=== PATIENT | male | born 1965 | race Caucasian/White ===

== ENCOUNTER 2020-12-04 11:38 | Emergency (ER) | payer OTHER ==
--- NOTE | 2020-12-04 12:37 | EDM.PDOC ---
ED HPI GENERAL MEDICAL PROBLEM - General Chief Complaint: Respiratory Problem Stated Complaint: NO ENERGY/SOB/COUGH Time Seen by Provider: 12/04/20 12:05 Source of Information: Reports: Patient History Limitations: Reports: No Limitations, Other (ED vital signs reveal a temp of 97.4, pulse of 117, respiratory rate of 20, blood pressure 123/92, pulse ox 97% on room air) - History of Present Illness INITIAL COMMENTS - FREE TEXT/NARRATIVE: 55-year-old male presents the emergency department with complaints of shortness of breath, cough, and fatigue for the past 5 days. Patient denies any significant medical history. He does not have a primary care provider and he does not take any prescription medications. He does admit to smoking a pack and half a day for the past 30 years. He does admit to drinking 3-4 times a drink 3-4 drinks per night. He also admits to occasional marijuana use and states last time he used was couple weeks ago. States he developed shortness of breath and cough about 5 days ago and then states he has had no energy when he is at work. States his cough is productive of sputum however he generally swallows it and has not looked at it. He also states he has had decreased appetite. He denies any nausea, vomiting, diarrhea or abdominal pain. He states he still has his sense of taste and smell. He denies headache or fever. He denies any other upper respiratory symptoms. He denies any chest pain. - Related Data Allergies Allergy/AdvReac Type Severity Reaction Status Date / Time No Known Allergies Allergy Verified 12/04/20 12:05 Home Meds: Home Meds Rivaroxaban [Xarelto] 20 mg PO DAILY #30 tablet 12/04/20 [Rx] dexAMETHasone [Dexamethasone] 6 mg PO DAILY #14 tablet 12/04/20 [Rx] Past Medical History Psychiatric History: Reports: Anxiety - Past Surgical History HEENT Surgical History: Reports: Tonsillectomy Social & Family History - Tobacco Use Tobacco Use Status *Q: Current Every Day Tobacco User Years of Tobacco use: 30 Packs/Tins Daily: 1.2 - Caffeine Use Caffeine Use: Reports: Coffee ED ROS GENERAL - Review of Systems Review Of Systems: Comprehensive ROS is negative, except as noted in HPI. ED EXAM, GENERAL - Physical Exam Exam: See Below Exam Limited By: No Limitations General Appearance: Alert, WD/WN, No Apparent Distress Ears: Normal External Exam, Hearing Grossly Normal Nose: Normal Inspection Throat/Mouth: Normal Inspection, Normal Lips, Normal Voice, No Airway Compromise Head: Atraumatic Neck: Normal Inspection, Supple Respiratory/Chest: No Respiratory Distress, Lungs Clear, Normal Breath Sounds, No Accessory Muscle Use, Chest Non-Tender Cardiovascular: Normal Peripheral Pulses, Regular Rate, Rhythm, No Edema, No Murmur Peripheral Pulses: 2+: Radial (L), Radial (R) GI/Abdominal: Normal Bowel Sounds, Soft, Non-Tender, No Distention (Male) Exam: Deferred Rectal (Males) Exam: Deferred Back Exam: Normal Inspection Extremities: Normal Inspection, Normal Range of Motion, Non-Tender, No Pedal Edema, Normal Capillary Refill Neurological: Alert, Oriented, Normal Cognition Psychiatric: Normal Affect, Normal Mood Skin Exam: Warm, Dry, Intact, Normal Color, No Rash Lymphatic: No Adenopathy #1 Interpretation EKG Date: 12/04/20 Time: 12:42 Rhythm: NSR Rate (Beats/Min): 116 [place]: Normal P-Wave: Present QRS: Normal ST-T: Normal QT: Normal EKG Interpretation Comments: Per Dr. Duron interpretation: Sinus tachycardia at 116 bpm; old inferior infarct; baseline wander in leads V4; inferior Q waves; lateral subtle ST depression Course - Vital Signs Text/Narrative:: As stated above patient with 5-day history of fatigue, shortness of breath and cough. Assessment is essentially unremarkable. I have ordered labs to include a CBC, BMP, LFTs, troponin, proBNP, C-reactive protein, Covid swab, with influenza a and B, EKG, PT, PTT, LDH and ferritin levels as well as a D-dimer. Last Recorded V/S: Last Vital Signs Temp 97.4 F 12/04/20 12:01 Pulse 117 H 12/04/20 12:01 Resp 20 12/04/20 12:01 BP 123/92 H 12/04/20 12:01 Pulse Ox 97 12/04/20 12:01 - Orders/Labs/Meds Orders: Active Orders 24 hr Category Date Time Status EKG Documentation Completion [RC] STAT Care 12/04/20 12:25 Active Nurse Communication: Isolation [RC] ASDIRECTED Care 12/04/20 12:25 Active Chest 1V Frontal [CR] Stat Exams 12/04/20 12:25 Taken Sodium Chloride 0.9% [Normal Saline] 100 ml Med 12/04/20 16:15 Active IV ASDIRECTED Sodium Chloride 0.9% [Saline Flush] Med 12/04/20 12:26 Active 10 ml FLUSH ASDIRECTED PRN Isolation [COMM] Stat Oth 12/04/20 12:24 Ordered Saline Lock Insert [OM.PC] Stat Oth 12/04/20 12:26 Ordered Medication Orders Sodium Chloride (Normal Saline) 100 mls @ 60 mls/hr IV ASDIRECTED LEONARD Last Admin: 12/04/20 16:21 Dose: 60 mls/hr Documented by: RODY Sodium Chloride (Sodium Chloride 0.9% 10 Ml Syringe) 10 ml FLUSH ASDIRECTED PRN PRN Reason: Keep Vein Open Last Admin: 12/04/20 16:21 Dose: 10 ml Documented by: Admin: 12/04/20 12:46 Dose: 10 ml Documented by: LAURENCE Labs: Laboratory Tests 12/04/20 12/04/20 12/04/20 Range/Units 12:45 12:45 12:45 WBC 3.37 L (4.23-9.07) K/mm3 RBC 5.70 (4.63-6.08) M/mm3 Hgb 15.9 (13.7-17.5) gm/dl Hct 48.6 (40.1-51.0) % MCV 85.3 (79.0-92.2) fl MCH 27.9 (25.7-32.2) pg MCHC 32.7 (32.2-35.5) g/dl RDW Std Deviation 46.9 H (35.1-43.9) fL Plt Count 235 (163-337) K/mm3 MPV 10.2 (9.4-12.3) fl Neut % (Auto) 61.4 (34.0-67.9) % Lymph % (Auto) 21.4 L (21.8-53.1) % [place] % (Auto) 16.6 H (5.3-12.2) % Eos % (Auto) 0.3 L (0.8-7.0) Baso % (Auto) 0.3 (0.1-1.2) % Neut # (Auto) 2.07 (1.78-5.38) K/mm3 Lymph # (Auto) 0.72 L (1.32-3.57) K/mm3 [place] # (Auto) 0.56 (0.30-0.82) K/mm3 Eos # (Auto) 0.01 L (0.04-0.54) K/mm3 Baso # (Auto) 0.01 (0.01-0.08) K/mm3 Manual Slide Review Normal smear PT 11.5 (9.7-12.0) SECONDS INR 1.08 APTT 28.2 (21.7-31.4) SECONDS D-Dimer, Quantitative 0.66 H (0.19-0.50) mg/L Sodium (136-145) mEq/L Potassium (3.5-5.1) mEq/L Chloride (98-107) mEq/L Carbon Dioxide (21-32) mEq/L Anion Gap (5-15) BUN (7-18) mg/dL Creatinine (0.7-1.3) mg/dL Est Cr Clr Drug Dosing mL/min Estimated GFR (MDRD) (>60) mL/min BUN/Creatinine Ratio (14-18) Glucose (70-99) mg/dL Lactic Acid (0.4-2.0) mmol/L Calcium (8.5-10.1) mg/dL Ferritin 131 (26-388) ng/ml Total Bilirubin (0.2-1.0) mg/dL Direct Bilirubin (0.0-0.2) mg/dl Indirect Bilirubin AST (15-37) U/L ALT (16-63) U/L Alkaline Phosphatase (46-116) U/L Lactate Dehydrogenase (85-227) U/L Troponin I (0.00-0.056) ng/mL C-Reactive Protein (<1.0) mg/dL NT-Pro-B Natriuret Pep (0-125) pg/mL Total Protein (6.4-8.2) g/dl Albumin (3.4-5.0) g/dl Globulin gm/dL Albumin/Globulin Ratio (1-2) Influenza Type A RNA (NEGATIVE) Influenza Type B RNA (NEGATIVE) SARS-CoV-2 RNA (MATTIE) (NEGATIVE) 12/04/20 12/04/20 12/04/20 Range/Units 12:45 12:45 12:45 WBC (4.23-9.07) K/mm3 RBC (4.63-6.08) M/mm3 Hgb (13.7-17.5) gm/dl Hct (40.1-51.0) % MCV (79.0-92.2) fl MCH (25.7-32.2) pg MCHC (32.2-35.5) g/dl RDW Std Deviation (35.1-43.9) fL Plt Count (163-337) K/mm3 MPV (9.4-12.3) fl Neut % (Auto) (34.0-67.9) % Lymph % (Auto) (21.8-53.1) % [place] % (Auto) (5.3-12.2) % Eos % (Auto) (0.8-7.0) Baso % (Auto) (0.1-1.2) % Neut # (Auto) (1.78-5.38) K/mm3 Lymph # (Auto) (1.32-3.57) K/mm3 [place] # (Auto) (0.30-0.82) K/mm3 Eos # (Auto) (0.04-0.54) K/mm3 Baso # (Auto) (0.01-0.08) K/mm3 Manual Slide Review PT (9.7-12.0) SECONDS INR APTT (21.7-31.4) SECONDS D-Dimer, Quantitative (0.19-0.50) mg/L Sodium 133 L (136-145) mEq/L Potassium 4.7 (3.5-5.1) mEq/L Chloride 99 (98-107) mEq/L Carbon Dioxide 23 (21-32) mEq/L Anion Gap 15.7 H (5-15) BUN 22 H (7-18) mg/dL Creatinine 1.0 (0.7-1.3) mg/dL Est Cr Clr Drug Dosing 92.11 mL/min Estimated GFR (MDRD) > 60 (>60) mL/min BUN/Creatinine Ratio 22.0 H (14-18) Glucose 100 H (70-99) mg/dL Lactic Acid 0.8 (0.4-2.0) mmol/L Calcium 8.4 L (8.5-10.1) mg/dL Ferritin (26-388) ng/ml Total Bilirubin 1.0 (0.2-1.0) mg/dL Direct Bilirubin 0.40 H (0.0-0.2) mg/dl Indirect Bilirubin 0.60 AST 49 H (15-37) U/L ALT 63 (16-63) U/L Alkaline Phosphatase 86 (46-116) U/L Lactate Dehydrogenase 254 H (85-227) U/L Troponin I 0.048 (0.00-0.056) ng/mL C-Reactive Protein 4.5 H* (<1.0) mg/dL NT-Pro-B Natriuret Pep 2401 H (0-125) pg/mL Total Protein 8.4 H (6.4-8.2) g/dl Albumin 3.5 (3.4-5.0) g/dl Globulin 4.9 gm/dL Albumin/Globulin Ratio 0.7 L (1-2) Influenza Type A RNA (NEGATIVE) Influenza Type B RNA (NEGATIVE) SARS-CoV-2 RNA (MATTIE) (NEGATIVE) 12/04/20 Range/Units 12:45 WBC (4.23-9.07) K/mm3 RBC (4.63-6.08) M/mm3 Hgb (13.7-17.5) gm/dl Hct (40.1-51.0) % MCV (79.0-92.2) fl MCH (25.7-32.2) pg MCHC (32.2-35.5) g/dl RDW Std Deviation (35.1-43.9) fL Plt Count (163-337) K/mm3 MPV (9.4-12.3) fl Neut % (Auto) (34.0-67.9) % Lymph % (Auto) (21.8-53.1) % [place] % (Auto) (5.3-12.2) % Eos % (Auto) (0.8-7.0) Baso % (Auto) (0.1-1.2) % Neut # (Auto) (1.78-5.38) K/mm3 Lymph # (Auto) (1.32-3.57) K/mm3 [place] # (Auto) (0.30-0.82) K/mm3 Eos # (Auto) (0.04-0.54) K/mm3 Baso # (Auto) (0.01-0.08) K/mm3 Manual Slide Review PT (9.7-12.0) SECONDS INR APTT (21.7-31.4) SECONDS D-Dimer, Quantitative (0.19-0.50) mg/L Sodium (136-145) mEq/L Potassium (3.5-5.1) mEq/L Chloride (98-107) mEq/L Carbon Dioxide (21-32) mEq/L Anion Gap (5-15) BUN (7-18) mg/dL Creatinine (0.7-1.3) mg/dL Est Cr Clr Drug Dosing mL/min Estimated GFR (MDRD) (>60) mL/min BUN/Creatinine Ratio (14-18) Glucose (70-99) mg/dL Lactic Acid (0.4-2.0) mmol/L Calcium (8.5-10.1) mg/dL Ferritin (26-388) ng/ml Total Bilirubin (0.2-1.0) mg/dL Direct Bilirubin (0.0-0.2) mg/dl Indirect Bilirubin AST (15-37) U/L ALT (16-63) U/L Alkaline Phosphatase (46-116) U/L Lactate Dehydrogenase (85-227) U/L Troponin I (0.00-0.056) ng/mL C-Reactive Protein (<1.0) mg/dL NT-Pro-B Natriuret Pep (0-125) pg/mL Total Protein (6.4-8.2) g/dl Albumin (3.4-5.0) g/dl Globulin gm/dL Albumin/Globulin Ratio (1-2) Influenza Type A RNA Negative (NEGATIVE) Influenza Type B RNA Negative (NEGATIVE) SARS-CoV-2 RNA (MATTIE) Positive H (NEGATIVE) Meds: Medications Generic Name Dose Route Start Last Admin Trade Name Freq PRN Reason Stop Dose Admin Sodium Chloride 100 mls @ 60 mls/hr 12/04/20 16:15 12/04/20 16:21 Normal Saline IV 60 mls/hr ASDIRECTED LEONARD Administration Sodium Chloride 10 ml 12/04/20 12:26 12/04/20 16:21 Sodium Chloride 0.9% 10 Ml Syringe FLUSH 10 ml ASDIRECTED PRN Administration Keep Vein Open Discontinued Medications Generic Name Dose Route Start Last Admin Trade Name Sohail PRN Reason Stop Dose Admin Dexamethasone 6 mg 12/04/20 15:14 12/04/20 15:29 Dexamethasone 4 Mg Tab PO 12/04/20 15:15 6 mg ONETIME ONE Administration Furosemide 20 mg 12/04/20 15:14 12/04/20 15:29 Furosemide 20 Mg/2 Ml Vial IVPUSH 12/04/20 15:15 20 mg ONETIME ONE Administration Iopamidol 100 ml 12/04/20 16:09 12/04/20 16:21 Iopamidol 755 Mg/Ml 100 Ml Bottle IVPUSH 12/04/20 16:10 100 ml ONETIME ONE Administration Sodium Chloride 10 ml 12/04/20 16:09 Sodium Chloride 0.9% 10 Ml Sdv FLUSH 12/04/20 16:10 ONETIME ONE - Re-Assessments/Exams Free Text/Narrative Re-Assessment/Exam: 12/04/20 13:47 Hematology reveals a WBC of 3.37, hemoglobin 15.9, hematocrit 48.6, platelet count 235 Coagulation reveals a pro time 11.5, INR 1.08, PTT 28.2, D-dimer 0.66 Chemistry reveals a sodium of 133, potassium 4.7, chloride 99, carbon dioxide 23, anion gap 15.7, BUN 22, creatinine 1.0, GFR greater than 60, glucose 100, lactic acid 0.8, calcium 8.4, ferritin 131, total bilirubin 1.0, direct bilirubin 0.40, indirect bilirubin 0.60, AST 49, ALT 63, alk phos 86, LDH 254, troponin 0 0.048, C-reactive protein 4.5, proBNP 2401, total protein 8.4 Serology reveals influenza a and B are negative the patient is Covid positive. D-dimer is slightly elevated above normal limits however I think this is likely due to the Covid diagnosis. I do not feel that we need to do a CT angiogram of the patient at this time. 12/04/20 13:50 BNP is slightly elevated. Chest xray was reviewed by myself and Dr. Duron and it shows increased vascular congestion. 12/04/20 15:45 Was going to discharge the patient to home however he has been tachycardic in the 120s. O2 saturations are at 98% however I feel it would be best to rule out PE. I have ordered a CTA on the patient. I have also ordered for the patient to receive 20 of Lasix IV now and dexamethasone 6 mg p.o. now. 12/04/20 17:[address] of the chest: Pulmonary arteries are fairly well opacified. There is a minimal filling defect seen within the segmental branch of the left upper lung which may represent a minimal pulmonary embolism. Other portions of the pulmonary emboli show no additional filling defects to indicate additional pulmonary emboli. Small cyst is noted within the left lobe of the liver measuring 1.1 cm. Small cyst is also noted within the upper Right kidney measuring approximately 1.1 cm. No pericardial thickening seen. Thoracic aorta shows mild atherosclerotic calcification with no aneurysm. No mediastinal adenopathy is seen. No axillary adenopathy is noted. 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 Visualized lungs show slight density medially within the right middle lobe. Patchy areas of increased density are noted within the right lung base. No additional parenchymal findings are seen. Bone window settings were reviewed which show several old healed left-sided rib fractures. Diffuse scattered degenerative change within the spine is seen. No acute osseous abnormality is appreciated. Impression: 1. Possible small pulmonary embolism within a segmental branch within the left upper lung. No other pulmonary embolism are seen. 2. Patchy areas of increased density within the right chest most likely due to either scarring or mild viral infection. 3. Other findings as noted above which are chronic. Patient will need to be started on treatment for PE. We will give him Xarelto 20 mg here while in the emergency department he will then need to take that daily thereafter and follow-up with your primary care provider to manage his anticoagulant treatment. Departure - Departure Time of Disposition: 17:16 Disposition: Home, Self-Care 01 Condition: Good Clinical Impression: COVID-19, Pulmonary embolism on left - Discharge Information Prescriptions: dexAMETHasone [Dexamethasone] 6 mg PO DAILY #14 tablet Rivaroxaban [Xarelto] 20 mg PO DAILY #30 tablet Instructions: COVID-19: How to Protect Yourself and Others - CDC, COVID-19: Quarantine vs. Isolation - CDC, Pulmonary Embolism Referrals: PCP,None [Primary Care Provider] - Forms: ED Department Discharge Additional Instructions: You were seen in the emergency department with increasing fatigue, cough and shortness of breath. Labs were completed as well as a chest x-ray and it was discovered that you have COVID-19. Your D-dimer, which is a lab used to evaluate for suspicion of blood clots was elevated. CT scan of the chest was completed which did show you to have a small blood clot noted in your left lung. Treatment for this is a blood thinner called Xarelto. You will need to take 1 tab, 20 mg, daily. I have sent a prescription to [facility] for this medication. This generally needs to be taken for approximately 6 months. You will need to follow-up with a primary care provider to manage while on this medication. You have stated that you would like to follow-up with Dr. Becerra. You can get a hold of him at [facility]. I want you to follow-up with him as soon as your 10 days of quarantine are completed. The number for the clinic to make an appointment is [phone]. I suggest you call first thing tomorrow to schedule this appointment. I have also given you a prescription for a medication called dexamethasone. This is a steroid. It is commonly used to treat the symptoms of Covid as it decreases the inflammatory response. I want you to take 6 mg daily until the prescription is gone. Recommend that you stop smoking and stop drinking alcohol. Should your condition worsen or change, do not hesitate returning to the emergency department. Sepsis Event Note (ED) - Evaluation Sepsis Screening Result: No Definite Risk - Focused Exam Vital Signs: Vital Signs Temp Pulse Resp BP Pulse Ox 12/04/20 12:01 97.4 F 117 H 20 123/92 H 97 - My Orders Last 24 Hours: My Active Orders 12/04/20 12:24 Isolation [COMM] Stat 12/04/20 12:25 EKG Documentation Completion [RC] STAT Nurse Communication: Isolation [RC] ASDIRECTED Chest 1V Frontal [CR] Stat 12/04/20 12:26 Sodium Chloride 0.9% [Saline Flush] 10 ml FLUSH ASDIRECTED PRN Saline Lock Insert [OM.PC] Stat 12/04/20 16:15 Sodium Chloride 0.9% [Normal Saline] 100 ml IV ASDIRECTED - Assessment/Plan Last 24 Hours: My Active Orders 12/04/20 12:24 Isolation [COMM] Stat 12/04/20 12:25 EKG Documentation Completion [RC] STAT Nurse Communication: Isolation [RC] ASDIRECTED Chest 1V Frontal [CR] Stat 12/04/20 12:26 Sodium Chloride 0.9% [Saline Flush] 10 ml FLUSH ASDIRECTED PRN Saline Lock Insert [OM.PC] Stat 12/04/20 16:15 Sodium Chloride 0.9% [Normal Saline] 100 ml IV ASDIRECTED
[2020-12-04] MEDS: Sodium Chloride 0.9% 10 ML Syringe FLUSH PRN ×2 (12:46→16:21)
[2020-12-04 13:36] LABS: CORONAVIRUS COVID-19 NAA POSITIVE (NEGATIVE)
[2020-12-04] MEDS ORDERED: Furosemide 20 MG/2 ML VIAL IVPUSH ONE (15:14)
[2020-12-04] MEDS ORDERED: Dexamethasone 4 MG Tab PO ONE (15:14)
[2020-12-04] MEDS ORDERED: Iopamidol 755 Mg/ML 100 ML Bottle IVPUSH ONE (16:09)
[2020-12-04] MEDS ORDERED: Sodium Chloride 0.9% 10 ML SDV FLUSH ONE (16:09)
[2020-12-04] MEDS ORDERED: Sodium Chloride 0.9% 100 ML IV SCH (16:15)
--- NOTE | 2020-12-04 16:48 | CT ---
CT chest Technique: Multiple axial sections through the chest were obtained. Intravenous contrast was utilized. Study has been performed as a pulmonary angiogram protocol. Comparison: No prior chest imaging is available. Findings: Pulmonary arteries are fairly well opacified. There is a minimal filling defect seen within the segmental branch of the left upper lung which may represent a minimal pulmonary embolism. Other portions of the pulmonary emboli show no additional filling defects to indicate additional pulmonary emboli. Small cyst is noted within the left lobe of the liver measuring 1.1 cm. Small cyst is also noted within the upper right kidney measuring approximately 1.1 cm. No pericardial thickening is seen. Thoracic aorta shows mild atherosclerotic calcification with no aneurysm. No mediastinal adenopathy is seen. No axillary adenopathy is noted. There is a large lipoma being seen which infiltrates itself between pectoral muscles on the right side of the chest. Visualized lungs show slight density medially within the right middle lobe. Patchy areas of increased density are noted within the right lung base. No additional parenchymal findings are seen. Bone window settings were reviewed which show several old healed left-sided rib fractures. Diffuse scattered degenerative change within the spine is seen. No acute osseous abnormality is appreciated. Impression: 1. Possible small pulmonary embolism within a segmental branch within the left upper lung. No other pulmonary emboli are seen. 2. Patchy areas of increased density within the right chest most likely due to either scarring or mild viral infection. 3. Other findings as noted above which are chronic. Diagnostic code #3
[2020-12-04] MEDS ORDERED: Rivaroxaban 10 MG Tab PO ONE (17:12)
--- NOTE | 2020-12-05 07:51 | CR ---
Chest: Portable view of the chest was obtained. Comparison: Subsequent chest CT study is available, no prior chest imaging is otherwise seen. Old rib fracture is noted within the right posterior sixth rib. Old rib fracture is also noted within the posterolateral left eighth rib. Density is noted within the left upper chest most likely representing costochondral calcification within the first rib articulation. Lungs otherwise show no definite acute parenchymal change. Small findings that were noted on subsequent chest CT are not well seen on current chest x-ray. Heart size and mediastinum are within normal limits. Impression: 1. Findings as noted above. Nothing acute is appreciated on portable chest x-ray. Diagnostic code #2
== END 2020-12-04 17:45 | disposition home or self-care (01) ==
LOC: JD.ED 11:38
DX: U07.1 COVID-19 (principal); I26.99 Other pulmonary embolism without acute cor pulmonale; Z79.01 Long term (current) use of anticoagulants; Z72.0 Tobacco use
CPT/HCPCS: 0240U; 36415; 71045; 71275; 80048; 80076; 82728; 83605; 83615; 83880; 84484; 85025; 85379; 85610; 85730; 86140; 93005; 96374; 99285; A9270; J1940; J8540; Q9967; 93010; 99284

== ENCOUNTER 2021-01-10 16:56 | Inpatient (IN) | payer OTHER ==
[~2021-01-10 16:56] MED LIST: Furosemide 40 MG/4 ML VIAL IVPUSH ONE
[2021-01-10] MEDS ORDERED: Sodium Chloride 0.9% 10 ML Syringe FLUSH PRN (17:26)
[2021-01-10] MEDS ORDERED: Furosemide 40 MG/4 ML VIAL IVPUSH ONE (18:43)
[2021-01-10] MEDS ORDERED: Nicotine 14 MG/24 Hr Patch TRDERM ONE (19:39)
--- NOTE | 2021-01-10 20:14 | EDM.PDOC ---
ED HPI GENERAL MEDICAL PROBLEM - General Chief Complaint: Respiratory Problem Stated Complaint: SOB ANKLE SWELLING Time Seen by Provider: 01/10/21 17:04 Source of Information: Reports: Patient, Family History Limitations: Reports: No Limitations - History of Present Illness INITIAL COMMENTS - FREE TEXT/NARRATIVE: The patient presents with shortness of breath, leg edema and weight gain. The patient was diagnosed with COVID in early November on the . His D-dimer was elevated so a CT angio of his chest was done and it showed bilateral COVID 19 pneumonia and a possible clot in the peripheral artery. He was started on xarelto. He says for a few days he felt good but then has been getting short of breath with exertion. That has gotten worse and over the past few weeks he had a 26 pound weight gain. Last night he had to sleep sitting up. He has no chest pain. He has no fever but he has some chills. He has no abdominal pain, nausea or vomiting. Onset: Gradual Duration: Week(s): Severity: Moderate Improves with: Reports: None Worsens with: Reports: None Associated Symptoms: Reports: Cough, Shortness of Breath. Denies: Chest Pain, Fever/Chills, Headaches, Nausea/Vomiting - Related Data Allergies Allergy/AdvReac Type Severity Reaction Status Date / Time No Known Allergies Allergy Verified 01/10/21 17:12 Home Meds: Home Meds Rivaroxaban [Xarelto] 20 mg PO DAILY #30 tablet 12/04/20 [Rx] dexAMETHasone [Dexamethasone] 6 mg PO DAILY #14 tablet 12/04/20 [Rx] Past Medical History Psychiatric History: Reports: Anxiety - Infectious Disease History Infectious Disease History: Reports: Novel Coronavirus - Past Surgical History HEENT Surgical History: Reports: Tonsillectomy Social & Family History - Tobacco Use Tobacco Use Status *Q: Current Every Day Tobacco User Years of Tobacco use: 45 Packs/Tins Daily: 1.5 - Caffeine Use Caffeine Use: Reports: Coffee - Recreational Drug Use Recreational Drug Use: No ED ROS GENERAL - Review of Systems Review Of Systems: See Below Constitutional: Reports: Malaise, Weakness, Fatigue. Denies: Fever, Chills HEENT: Reports: No Symptoms Respiratory: Reports: Shortness of Breath. Denies: Cough Cardiovascular: Reports: Edema. Denies: Chest Pain Endocrine: Reports: No Symptoms GI/Abdominal: Reports: No Symptoms : Reports: No Symptoms Musculoskeletal: Reports: No Symptoms ED EXAM, GENERAL - Physical Exam Exam: See Below Exam Limited By: No Limitations General Appearance: Alert, No Apparent Distress Ears: Normal External Exam Nose: Normal Inspection Head: Atraumatic, Normocephalic Neck: Normal Inspection, Supple, Non-Tender Respiratory/Chest: No Respiratory Distress, Rales Cardiovascular: Regular Rate, Rhythm, No Edema, Systolic Murmur GI/Abdominal: Soft, Non-Tender, No Organomegaly, No Mass Back Exam: Normal Inspection #1 Interpretation EKG Date: 01/10/21 Time: 17:41 Rhythm: Other (sinus tachycardia) Rate (Beats/Min): 116 [place]: Normal P-Wave: Present QRS: Normal ST-T: Normal QT: Normal EKG Interpretation Comments: Q waves in the inferior leads Course - Vital Signs Last Recorded V/S: Last Vital Signs Temp 97.1 F 01/10/21 17:05 Pulse 122 H 01/10/21 17:05 Resp 26 H 01/10/21 17:05 BP 161/96 H 01/10/21 17:05 Pulse Ox 97 01/10/21 17:05 - Orders/Labs/Meds Orders: Active Orders 24 hr Category Date Time Status Cardiac Monitoring [RC] . DIRECTED Care 01/10/21 17:26 Active Oxygen Therapy [RC] PRN Care 01/10/21 17:26 Active Peripheral IV Care [RC] . DIRECTED Care 01/10/21 17:26 Active Chest 1V Frontal [CR] Stat Exams 01/10/21 17:26 Taken Pantoprazole [ProTONIX IV] Med 01/10/21 20:43 Once 40 mg IVPUSH ONETIME ONE Sodium Chloride 0.9% [Saline Flush] Med 01/10/21 17:26 Active 10 ml FLUSH ASDIRECTED PRN Peripheral IV Insertion Adult [OM.PC] Stat Oth 01/10/21 17:26 Ordered Medication Orders Sodium Chloride (Sodium Chloride 0.9% 10 Ml Syringe) 10 ml FLUSH ASDIRECTED PRN PRN Reason: Keep Vein Open Last Admin: 01/10/21 17:32 Dose: 10 ml Documented by: HI Labs: Laboratory Tests 01/10/21 01/10/21 01/10/21 Range/Units 17:07 17:07 17:07 WBC 5.68 (4.23-9.07) K/mm3 RBC 3.16 L (4.63-6.08) M/mm3 Hgb 8.4 L D (13.7-17.5) gm/dl Hct 28.5 L (40.1-51.0) % MCV 90.2 D (79.0-92.2) fl MCH 26.6 (25.7-32.2) pg MCHC 29.5 L (32.2-35.5) g/dl RDW Std Deviation 54.0 H (35.1-43.9) fL Plt Count 310 D (163-337) K/mm3 MPV 10.4 (9.4-12.3) fl Neut % (Auto) 66.8 (34.0-67.9) % Lymph % (Auto) 17.3 L (21.8-53.1) % [place] % (Auto) 14.1 H (5.3-12.2) % Eos % (Auto) 1.4 (0.8-7.0) Baso % (Auto) 0.2 (0.1-1.2) % Neut # (Auto) 3.80 (1.78-5.38) K/mm3 Lymph # (Auto) 0.98 L (1.32-3.57) K/mm3 [place] # (Auto) 0.80 (0.30-0.82) K/mm3 Eos # (Auto) 0.08 (0.04-0.54) K/mm3 Baso # (Auto) 0.01 (0.01-0.08) K/mm3 Sodium 138 (136-145) mEq/L Potassium 4.5 (3.5-5.1) mEq/L Chloride 105 (98-107) mEq/L Carbon Dioxide 27 (21-32) mEq/L Anion Gap 10.5 (5-15) BUN 19 H (7-18) mg/dL Creatinine 0.9 (0.7-1.3) mg/dL Est Cr Clr Drug Dosing 102.34 mL/min Estimated GFR (MDRD) > 60 (>60) mL/min BUN/Creatinine Ratio 21.1 H (14-18) Glucose 103 H (70-99) mg/dL Calcium 8.0 L (8.5-10.1) mg/dL Total Bilirubin 0.6 (0.2-1.0) mg/dL AST 24 (15-37) U/L ALT 36 (16-63) U/L Alkaline Phosphatase 83 (46-116) U/L Troponin I < 0.017 (0.00-0.056) ng/mL NT-Pro-B Natriuret Pep 3799 H (0-125) pg/mL Total Protein 6.7 (6.4-8.2) g/dl Albumin 2.7 L (3.4-5.0) g/dl Globulin 4.0 gm/dL Albumin/Globulin Ratio 0.7 L (1-2) Meds: Medications Generic Name Dose Route Start Last Admin Trade Name Freq PRN Reason Stop Dose Admin Sodium Chloride 10 ml 01/10/21 17:26 01/10/21 17:32 Sodium Chloride 0.9% 10 Ml Syringe FLUSH 10 ml ASDIRECTED PRN Administration Keep Vein Open Discontinued Medications Generic Name Dose Route Start Last Admin Trade Name Freq PRN Reason Stop Dose Admin Furosemide 40 mg 01/10/21 18:43 01/10/21 18:57 Furosemide 40 Mg/4 Ml Vial IVPUSH 01/10/21 18:44 40 mg NOW ONE Administration Nicotine 14 mg 01/10/21 19:39 01/10/21 20:00 Nicotine 14 Mg/24 Hr Patch TRDERM 01/10/21 19:40 14 mg ONETIME ONE Administration - Re-Assessments/Exams Free Text/Narrative Re-Assessment/Exam: 01/10/21 20:48 I ordered oxygen PRN, EKG, CXR, and labs. His EKG shows a sinus tachycardia with no acute changes. His CXR shows cardiomegaly with congestive changes. 01/10/21 20:49 His Hgb was low at 8.4. His CMP looks good. His troponin is negative. His BNP was elevated at 3799. I gave him lasix 40mg IV. He had about 800mls of output already. He has no onset CHF with a murmur. I feel he needs to be admitted with lasix and an echo. I called Dr Brooks and he agreed to the admission. Departure - Departure Time of Disposition: 20:55 Disposition: Admitted As Inpatient 64 Condition: Poor Clinical Impression: New onset of congestive heart failure CHF exacerbation Qualifiers: Heart failure type: unspecified Qualified Code(s): I50.9 - Heart failure, unspecified Anemia Qualifiers: Anemia type: other cause Other causes of anemia: other cause, not classified Qualified Code(s): D64.89 - Other specified anemias - Discharge Information Referrals: Maikel Alexander MD [Primary Care Provider] - Forms: ED Department Discharge Sepsis Event Note (ED) - Focused Exam Vital Signs: Vital Signs Temp Pulse Resp BP Pulse Ox 01/10/21 17:05 97.1 F 122 H 26 H 161/96 H 97 - My Orders Last 24 Hours: My Active Orders 01/10/21 17:26 Cardiac Monitoring [RC] . DIRECTED Oxygen Therapy [RC] PRN Peripheral IV Care [RC] . DIRECTED Chest 1V Frontal [CR] Stat Sodium Chloride 0.9% [Saline Flush] 10 ml FLUSH ASDIRECTED PRN Peripheral IV Insertion Adult [OM.PC] Stat 01/10/21 20:43 Pantoprazole [ProTONIX IV] 40 mg IVPUSH ONETIME ONE - Assessment/Plan Last 24 Hours: My Active Orders 01/10/21 17:26 Cardiac Monitoring [RC] . DIRECTED Oxygen Therapy [RC] PRN Peripheral IV Care [RC] . DIRECTED Chest 1V Frontal [CR] Stat Sodium Chloride 0.9% [Saline Flush] 10 ml FLUSH ASDIRECTED PRN Peripheral IV Insertion Adult [OM.PC] Stat 01/10/21 20:43 Pantoprazole [ProTONIX IV] 40 mg IVPUSH ONETIME ONE
[2021-01-10] MEDS ORDERED: Pantoprazole 40 MG Vial IVPUSH ONE (20:43)
--- NOTE | 2021-01-11 07:20 | CR ---
Chest: Portable view of the chest was obtained. Comparison: Prior chest x-ray of 12/04/20. Heart size and mediastinum are within normal limits for portable technique. Old right-sided rib fracture is seen within the sixth right rib. Old left lower rib fracture is noted within the left eighth rib. Lung markings are mildly increased which appear stable from prior chest x-ray. No appreciable change is definitely seen from prior exam. Impression: 1. Findings as noted above. 2. No definite change is seen from previous chest x-ray. Diagnostic code #2
--- NOTE | 2021-01-11 07:42 | PCM.HP.2 ---
H&P History of Present Illness - General Date of Service: 01/11/21 Admit Problem/Dx: Admission Diagnosis/Problem Admission Diagnosis/Problem Congestive heart failure Source of Information: Patient, Old Records, Provider, RN, RN Notes Reviewed History Limitations: Reports: No Limitations - History of Present Illness Initial Comments - Free Text/Narative: This is a 55-year-old male who presents to our ED on the evening of 01/10/2021 with shortness of breath and ankle swelling. He also appreciates a 26 pound weight gain over the last few weeks. Per his history he was diagnosed with Covid in early November on the and a CT angiogram of his chest was done showing bilateral COVID-19 pneumonia and a possible clot in the peripheral artery. He was started on Xarelto. Shortly thereafter he noticed that he was getting more and more shortness of breath with exertion. He reports orthopnea but denies any chest pain. No fever but had some chills. Denies any abdominal pain, nausea, vomiting. In the ED twelve-lead EKG is obtained showing a sinus tachycardia 116 bpm. There are Q waves noted in the inferior leads. Temp is 97.1 Fahrenheit. Pulse 122. Respirations 26. Blood pressure 161/96. Pulse ox is 97% on room air. Labs are obtained showing a WBC of 5.68. Hemoglobin 8.4. He is normocytic. Platelet 310,000. Neutrophils are normal at 66.8%. Sodium 138. Potassium 4.5. Chloride 105. Carbon dioxide 27. Anion gap is 10.5. BUN is 19. Creatinine 0.9. GFR greater than 60. Glucose is 103. Total bilirubin 0.6. AST is 24, ALT 36, alkaline phosphatase 83. Troponin is less than 0.017. proBNP is 3799. Protein is 6.7. Albumin 2.7. Chest x-ray is obtained showing mildly increased lung markings which appear stable and old rib fractures but nothing acute. He is given 40 mg IV push Lasix and has 800 mL of output. Of note there is a new systolic murmur noted. He carries a history of anxiety. He is a daily 1.5 pack/day smoker. He is a full code. His PCP is Dr. Becerra. He subsequently admitted to the medical floor for management of his suspected new onset CHF. - Related Data Allergies/Adverse Reactions: Allergies Allergy/AdvReac Type Severity Reaction Status Date / Time No Known Allergies Allergy Verified 01/11/21 00:24 Home Medications: Home Meds Rivaroxaban [Xarelto] 20 mg PO DAILY #30 tablet 12/04/20 [Rx] Past Medical History Respiratory History: Reports: PE Psychiatric History: Reports: Anxiety - Infectious Disease History Infectious Disease History: Reports: Novel Coronavirus - Past Surgical History HEENT Surgical History: Reports: Tonsillectomy Other Respiratory Surgeries/Procedures: Covid (+) December 04, 2020 with PE Social & Family History - Family History Family Medical History: No Pertinent Family History - Tobacco Use Tobacco Use Status *Q: Current Every Day Tobacco User Years of Tobacco use: 35 Packs/Tins Daily: 1 Used Tobacco, but Quit: No - Caffeine Use Caffeine Use: Reports: Coffee - Recreational Drug Use Recreational Drug Use: No H&P Review of Systems - Review of Systems: Review Of Systems: See Below General: Reports: Chills, Weakness, Weight Gain (26 lbs). Denies: Fever, Malaise, Fatigue HEENT: Reports: No Symptoms. Denies: Headaches, Sore Throat Pulmonary: Reports: Shortness of Breath. Denies: Wheezing, Pleuritic Chest Pain, Cough, Sputum Cardiovascular: Reports: Dyspnea on Exertion, Orthopnea, Edema. Denies: Chest Pain, Palpitations Gastrointestinal: Reports: Hematochezia. Denies: Abdominal Pain, Constipation, Diarrhea, Hematemesis, Melena, Nausea, Vomiting Genitourinary: Reports: No Symptoms. Denies: Pain Musculoskeletal: Reports: No Symptoms Skin: Reports: No Symptoms. Denies: Cyanosis Psychiatric: Reports: No Symptoms. Denies: Confusion Neurological: Reports: No Symptoms. Denies: Confusion, Dizziness, Headache, Numbness, Tingling, Difficulty Walking, Gait Disturbance Hematologic/Lymphatic: Reports: No Symptoms Immunologic: Reports: No Symptoms Exam - Exam Exam: See Below - Vital Signs Vital Signs: Last Vital Signs Temp 98.2 F 01/11/21 05:49 Pulse 119 H 01/11/21 05:49 Resp 14 01/11/21 05:49 BP 133/93 H 01/11/21 05:49 Pulse Ox 97 01/11/21 05:49 Weight: 233 lb 4.8 oz - Exam Quality Assessment: DVT Prophylaxis. No: Supplemental Oxygen, Urinary Catheter General: Alert, Oriented, Cooperative. No: Mild Distress HEENT: Conjunctiva Clear, EACs Clear, Mucosa Moist & [place], Posterior Pharynx Clear Neck: Supple, Trachea Midline Lungs: Clear to Auscultation, Normal Respiratory Effort Cardiovascular: Regular Rate, Regular Rhythm GI/Abdominal Exam: Normal Bowel Sounds, Soft, Non-Tender, No Distention (Male) Exam: Deferred Rectal (Males) Exam: Deferred Back Exam: Normal Inspection, Full Range of Motion Extremities: Normal Inspection, Normal Range of Motion, Non-Tender, Normal Capillary Refill, Pedal Edema (1+) Peripheral Pulses: 2+: Radial (L), Radial (R), Dorsalis Pedis (L), Dorsalis Pedis (R) Skin: Warm, Dry, Intact Neurological: Cranial Nerves Intact (Grossly ) Neuro Extensive - Mental Status: Alert, Oriented x3, Normal Mood/Affect - Patient Data Lab Results Last 24 hrs: Laboratory Results - last 24 hr 01/10/21 01/10/21 01/10/21 Range/Units 17:07 17:07 17:07 WBC 5.68 (4.23-9.07) K/mm3 RBC 3.16 L (4.63-6.08) M/mm3 Hgb 8.4 L D (13.7-17.5) gm/dl Hct 28.5 L (40.1-51.0) % MCV 90.2 D (79.0-92.2) fl MCH 26.6 (25.7-32.2) pg MCHC 29.5 L (32.2-35.5) g/dl RDW Std Deviation 54.0 H (35.1-43.9) fL Plt Count 310 D (163-337) K/mm3 MPV 10.4 (9.4-12.3) fl Neut % (Auto) 66.8 (34.0-67.9) % Lymph % (Auto) 17.3 L (21.8-53.1) % [place] % (Auto) 14.1 H (5.3-12.2) % Eos % (Auto) 1.4 (0.8-7.0) Baso % (Auto) 0.2 (0.1-1.2) % Neut # (Auto) 3.80 (1.78-5.38) K/mm3 Lymph # (Auto) 0.98 L (1.32-3.57) K/mm3 [place] # (Auto) 0.80 (0.30-0.82) K/mm3 Eos # (Auto) 0.08 (0.04-0.54) K/mm3 Baso # (Auto) 0.01 (0.01-0.08) K/mm3 Sodium 138 (136-145) mEq/L Potassium 4.5 (3.5-5.1) mEq/L Chloride 105 (98-107) mEq/L Carbon Dioxide 27 (21-32) mEq/L Anion Gap 10.5 (5-15) BUN 19 H (7-18) mg/dL Creatinine 0.9 (0.7-1.3) mg/dL Est Cr Clr Drug Dosing 102.34 mL/min Estimated GFR (MDRD) > 60 (>60) mL/min BUN/Creatinine Ratio 21.1 H (14-18) Glucose 103 H (70-99) mg/dL Calcium 8.0 L (8.5-10.1) mg/dL Total Bilirubin 0.6 (0.2-1.0) mg/dL AST 24 (15-37) U/L ALT 36 (16-63) U/L Alkaline Phosphatase 83 (46-116) U/L Troponin I < 0.017 (0.00-0.056) ng/mL NT-Pro-B Natriuret Pep 3799 H (0-125) pg/mL Total Protein 6.7 (6.4-8.2) g/dl Albumin 2.7 L (3.4-5.0) g/dl Globulin 4.0 gm/dL Albumin/Globulin Ratio 0.7 L (1-2) Result Diagrams: 01/11/21 07:59 01/11/21 07:59 Sepsis Event Note - Evaluation Sepsis Screening Result: No Definite Risk - Focused Exam Vital Signs: Vital Signs Temp Pulse Resp BP Pulse Ox 01/11/21 05:49 98.2 F 119 H 14 133/93 H 97 01/10/21 22:21 126 H 14 158/88 H 100 - Problem List (1) Tachycardia SNOMED Code(s): 5514938 ICD Code: R00.0 - TACHYCARDIA, UNSPECIFIED Status: Acute Priority: Medium Current Visit: Yes (2) Lower GI bleed SNOMED Code(s): 06679652 ICD Code: K92.2 - GASTROINTESTINAL HEMORRHAGE, UNSPECIFIED Status: Acute Priority: Medium Current Visit: Yes (3) Murmur SNOMED Code(s): 03327659 ICD Code: R01.1 - CARDIAC MURMUR, UNSPECIFIED Status: Acute Priority: High Current Visit: Yes (4) Pedal edema SNOMED Code(s): 100209839 ICD Code: R60.0 - LOCALIZED EDEMA Status: Acute Priority: High Current Visit: Yes (5) Tobacco use disorder SNOMED Code(s): 493001096 ICD Code: F17.200 - NICOTINE DEPENDENCE, UNSPECIFIED, UNCOMPLICATED Status: Chronic Priority: Medium Current Visit: Yes (6) Alcohol use SNOMED Code(s): 223554 ICD Code: Z72.89 - OTHER PROBLEMS RELATED TO LIFESTYLE Status: Chronic Priority: Medium Current Visit: Yes (7) History of COVID-19 SNOMED Code(s): 415453557138685913, 224662518208157832 ICD Code: Z86.16 - PERSONAL HISTORY OF COVID-19 Status: Chronic Priority: Medium Current Visit: Yes (8) Anemia SNOMED Code(s): 106924365 ICD Code: D64.9 - ANEMIA, UNSPECIFIED Status: Acute Priority: High Current Visit: Yes Qualifiers: Anemia type: other cause Other causes of anemia: other cause, not classified Qualified Code(s): D64.89 - Other specified anemias (9) New onset of congestive heart failure SNOMED Code(s): 04356723 ICD Code: I50.9 - HEART FAILURE, UNSPECIFIED Status: Acute Priority: High Current Visit: Yes Problem List Initiated/Reviewed/Updated: Yes Orders Last 24hrs: Active Orders 24 hr Category Date Time Status Patient Status [ADT] Routine ADT 01/10/21 22:05 Active Antiembolic Devices [RC] PER UNIT ROUTINE Care 01/11/21 07:41 Active Bedrest Bathroom Privileges [RC] BID Care 01/10/21 22:43 Active Cardiac Monitoring [RC] . DIRECTED Care 01/10/21 17:26 Active Oxygen Therapy [RC] PRN Care 01/10/21 17:26 Active Peripheral IV Care [RC] Q4HR Care 01/10/21 17:26 Active Heart Healthy Diet [DIET] Diet 01/11/21 Breakfast Active Echo Comp wo Cont [US] Routine Exams 01/11/21 Ordered Furosemide [Lasix] Med 01/11/21 09:00 Once 40 mg IVPUSH ONETIME ONE Melatonin Med 01/10/21 22:46 Active 6 mg PO BEDTIME PRN Pantoprazole [ProTONIX IV] Med 01/11/21 09:00 Active 40 mg IVPUSH BID Sodium Chloride 0.9% [Saline Flush] Med 01/10/21 17:26 Active 10 ml FLUSH ASDIRECTED PRN Peripheral IV Insertion Adult [OM.PC] Stat Oth 01/10/21 17:26 Ordered SCD [Sequential Compression Device] [OM.PC] Routine Oth 01/11/21 07:41 Ordered Code Status [Resuscitation Status] Routine Resus Stat 01/10/21 23:38 Ordered Medication Orders Furosemide (Furosemide 40 Mg/4 Ml Vial) 40 mg IVPUSH ONETIME ONE Stop: 01/11/21 09:01 Melatonin (Melatonin 3 Mg Tab) 6 mg PO BEDTIME PRN PRN Reason: Insomnia Pantoprazole Sodium (Pantoprazole 40 Mg Vial) 40 mg IVPUSH BID LEONARD Sodium Chloride (Sodium Chloride 0.9% 10 Ml Syringe) 10 ml FLUSH ASDIRECTED PRN PRN Reason: Keep Vein Open Last Admin: 01/10/21 17:32 Dose: 10 ml Documented by: HI Assessment/Plan Comment:: Assessment - 01/11/2021 (admitted late 01/10/2021) * 55-year-old male who presents to our ED on the evening of 01/10/2021 with shortness of breath and ankle swelling * History of anxiety. He is a daily 1.5 pack/day smoker * Appreciates a 26 pound weight gain over the last few weeks * Diagnosed with Covid in early November on the and a CT angiogram of his chest was done showing bilateral COVID-19 pneumonia and a possible clot in the peripheral artery * Started on Xarelto * Has since noticed that he was getting more and more shortness of breath with exertion * Reports orthopnea but denies any chest pain. No fever but had some chills. D enies any abdominal pain, nausea, vomiting. * 12-lead EKG is obtained showing a sinus tachycardia 116 bpm. There are Q waves noted in the inferior leads. * Labs are obtained: * WBC of 5.68. * Hemoglobin 8.4. He is normocytic. * Platelet 310,000. * Neutrophils are normal at 66.8%. * Sodium 138. * Potassium 4.5. * Chloride 105. * Carbon dioxide 27. * Anion gap is 10.5. * BUN is 19. Creatinine 0.9. GFR greater than 60. * Glucose is 103. * Total bilirubin 0.6. * AST is 24, ALT 36, alkaline phosphatase 83. * Troponin is less than 0.017. * proBNP is 3799. * Protein is 6.7. * Albumin 2.7. * Chest x-ray is obtained showing mildly increased lung markings which appear stable and old rib fractures but nothing acute. * He is given 40 mg IV push Lasix and has 800 mL of output. * Of note there is a new systolic murmur noted. * Subsequently admitted to the medical floor for management of his suspected new onset CHF. PLAN: New onset of congestive heart failure Tachycardia Murmur Pedal edema * 40mg BID Diuretic IVP lasix * Telemetry * Strict I&O * Daily weights * 1.5L fluid restriction * Heart healthy diet (low sodium) * Event Staff Member consultation * Echocardiogram obtained and pending * Cardiology follow-up * Consider Entresto * No need for PT/OT currently * Monitor vital signs * Monitor electrolytes * Daily labs Anemia Lower GI bleed * Daily labs * Re-check H/H at 1300 * BID 40mg PO protonix * Hold home Xarelto * SCDs * Consider surgical consult although poor candidate due to new onset CHF Tobacco use disorder * Daily nicotine patch * Cessation counseling * Offer patches on discharge Alcohol use * Reports social ETOH use * Known history of rather significant ETOH use * Q4HR CIWAA protocol * Start thiamine supplementation daily * Start folic acid supplementation * Monitor History of COVID-19 * No acute concerns * ? Cardiomyopathy 2/2 Covid Code status: Full Code PCP: Dr. Becerra DVT prophylaxis: SCDs (pharmacological contraindicated due to GI bleed) Disposition: Patient admitted to OB as MedSurg overflow for new onset CHF work- up on telemetry. Length of stay likely 3 to 4 days. - Mortality Measure Prognosis:: Good
[2021-01-11] MEDS ORDERED: Docusate Sodium 100 MG Cap PO PRN (07:44)
[2021-01-11] MEDS ORDERED: Acetaminophen 325 MG Tab PO PRN (07:44)
[2021-01-11] MEDS ORDERED: Ondansetron 4 MG/2 ML SDV IV PRN (07:44)
[2021-01-11] MEDS ORDERED: Pantoprazole 40 MG Vial IVPUSH SCH (09:00)
[2021-01-11] MEDS ORDERED: Furosemide 40 MG/4 ML VIAL IVPUSH ONE (09:00)
[2021-01-11] MEDS: Nicotine 14 MG/24 Hr Patch TRDERM SCH (09:25)
[2021-01-11] MEDS: Thiamine 100 MG Tab PO SCH (11:08)
[2021-01-11] MEDS: Folic Acid 1 MG Tab PO SCH (11:08)
[2021-01-11] MEDS: Furosemide 40 MG/4 ML VIAL IVPUSH SCH (14:31)
[2021-01-11] MEDS: Pantoprazole 40 MG Tab.CR PO SCH (20:37)
[2021-01-11] MEDS: Melatonin 3 MG Tab PO PRN (20:38)
[2021-01-12] MEDS: Furosemide 40 MG/4 ML VIAL IVPUSH SCH ×2 (06:27→14:58)
--- NOTE | 2021-01-12 07:08 | PCM.PN ---
- General Info Date of Service: 01/12/21 Admission Dx/Problem (Free Text): Admission Diagnosis/Problem Admission Diagnosis/Problem Congestive heart failure Functional Status: Reports: Pain Controlled, Tolerating Diet, Ambulating, Urinating. Denies: New Symptoms - Review of Systems General: Reports: No Symptoms. Denies: Fever, Weakness, Fatigue, Malaise, Chills HEENT: Reports: No Symptoms. Denies: Headaches, Sore Throat Pulmonary: Reports: No Symptoms. Denies: Shortness of Breath, Cough, Sputum, Wheezing Cardiovascular: Reports: Edema. Denies: Chest Pain, Palpitations, Dyspnea on Exertion Gastrointestinal: Reports: No Symptoms. Denies: Abdominal Pain, Constipation, Diarrhea, Nausea, Vomiting Genitourinary: Reports: No Symptoms. Denies: Pain Musculoskeletal: Reports: No Symptoms Skin: Reports: No Symptoms. Denies: Cyanosis Neurological: Reports: No Symptoms. Denies: Confusion, Dizziness, Headache, Numbness, Pre-Existing Deficit, Tingling, Difficulty Walking, Weakness, Gait Disturbance Psychiatric: Reports: No Symptoms - Patient Data Vitals - Most Recent: Last Vital Signs Temp 97.7 F 01/12/21 01:39 Pulse 116 H 01/12/21 01:39 Resp 18 01/12/21 01:39 BP 125/97 H 01/12/21 01:39 Pulse Ox 99 01/12/21 01:39 Weight - Most Recent: 219 lb I&O - Last 24 Hours: Intake & Output 01/11/21 01/12/21 01/12/21 22:59 06:59 14:59 Intake Total 420 350 Output Total 1975 450 Balance -1555 -100 Lab Results Last 24 Hours: Laboratory Results - last 24 hr 01/11/21 01/11/21 01/11/21 Range/Units 07:59 07:59 13:06 WBC 5.32 (4.23-9.07) K/mm3 RBC 2.91 L (4.63-6.08) M/mm3 Hgb 7.8 L 8.7 L (13.7-17.5) gm/dl Hct 25.9 L 29.1 L (40.1-51.0) % MCV 89.0 (79.0-92.2) fl MCH 26.8 (25.7-32.2) pg MCHC 30.1 L (32.2-35.5) g/dl RDW Std Deviation 52.1 H (35.1-43.9) fL Plt Count 276 (163-337) K/mm3 MPV 9.9 (9.4-12.3) fl Neut % (Auto) 66.0 (34.0-67.9) % Lymph % (Auto) 19.7 L (21.8-53.1) % Pierce % (Auto) 12.8 H (5.3-12.2) % Eos % (Auto) 1.3 (0.8-7.0) Baso % (Auto) 0.2 (0.1-1.2) % Neut # (Auto) 3.51 (1.78-5.38) K/mm3 Lymph # (Auto) 1.05 L (1.32-3.57) K/mm3 Pierce # (Auto) 0.68 (0.30-0.82) K/mm3 Eos # (Auto) 0.07 (0.04-0.54) K/mm3 Baso # (Auto) 0.01 (0.01-0.08) K/mm3 Sodium 137 (136-145) mEq/L Potassium 4.1 (3.5-5.1) mEq/L Chloride 104 (98-107) mEq/L Carbon Dioxide 28 (21-32) mEq/L Anion Gap 9.1 (5-15) BUN 15 (7-18) mg/dL Creatinine 0.9 (0.7-1.3) mg/dL Est Cr Clr Drug Dosing 102.34 mL/min Estimated GFR (MDRD) > 60 (>60) mL/min BUN/Creatinine Ratio 16.7 (14-18) Glucose 98 (70-99) mg/dL Calcium 7.8 L (8.5-10.1) mg/dL Magnesium 1.9 (1.8-2.4) mg/dL Total Bilirubin 0.8 (0.2-1.0) mg/dL AST 21 (15-37) U/L ALT 33 (16-63) U/L Alkaline Phosphatase 76 (46-116) U/L Total Protein 6.3 L (6.4-8.2) g/dl Albumin 2.5 L (3.4-5.0) g/dl Globulin 3.8 gm/dL Albumin/Globulin Ratio 0.7 L (1-2) 01/11/21 01/12/21 01/12/21 Range/Units 19:23 01:20 04:44 WBC 5.95 (4.23-9.07) K/mm3 RBC 3.47 L (4.63-6.08) M/mm3 Hgb 9.5 L 8.7 L 9.1 L (13.7-17.5) gm/dl Hct 31.7 L 29.3 L 30.1 L (40.1-51.0) % MCV 86.7 (79.0-92.2) fl MCH 26.2 (25.7-32.2) pg MCHC 30.2 L (32.2-35.5) g/dl RDW Std Deviation 51.7 H (35.1-43.9) fL Plt Count 324 (163-337) K/mm3 MPV 10.1 (9.4-12.3) fl Neut % (Auto) 63.5 (34.0-67.9) % Lymph % (Auto) 20.7 L (21.8-53.1) % Pierce % (Auto) 14.1 H (5.3-12.2) % Eos % (Auto) 1.2 (0.8-7.0) Baso % (Auto) 0.3 (0.1-1.2) % Neut # (Auto) 3.78 (1.78-5.38) K/mm3 Lymph # (Auto) 1.23 L (1.32-3.57) K/mm3 Pierce # (Auto) 0.84 H (0.30-0.82) K/mm3 Eos # (Auto) 0.07 (0.04-0.54) K/mm3 Baso # (Auto) 0.02 (0.01-0.08) K/mm3 Sodium (136-145) mEq/L Potassium (3.5-5.1) mEq/L Chloride (98-107) mEq/L Carbon Dioxide (21-32) mEq/L Anion Gap (5-15) BUN (7-18) mg/dL Creatinine (0.7-1.3) mg/dL Est Cr Clr Drug Dosing mL/min Estimated GFR (MDRD) (>60) mL/min BUN/Creatinine Ratio (14-18) Glucose (70-99) mg/dL Calcium (8.5-10.1) mg/dL Magnesium (1.8-2.4) mg/dL Total Bilirubin (0.2-1.0) mg/dL AST (15-37) U/L ALT (16-63) U/L Alkaline Phosphatase (46-116) U/L Total Protein (6.4-8.2) g/dl Albumin (3.4-5.0) g/dl Globulin gm/dL Albumin/Globulin Ratio (1-2) 01/12/21 Range/Units 04:44 WBC (4.23-9.07) K/mm3 RBC (4.63-6.08) M/mm3 Hgb (13.7-17.5) gm/dl Hct (40.1-51.0) % MCV (79.0-92.2) fl MCH (25.7-32.2) pg MCHC (32.2-35.5) g/dl RDW Std Deviation (35.1-43.9) fL Plt Count (163-337) K/mm3 MPV (9.4-12.3) fl Neut % (Auto) (34.0-67.9) % Lymph % (Auto) (21.8-53.1) % Pierce % (Auto) (5.3-12.2) % Eos % (Auto) (0.8-7.0) Baso % (Auto) (0.1-1.2) % Neut # (Auto) (1.78-5.38) K/mm3 Lymph # (Auto) (1.32-3.57) K/mm3 Pierce # (Auto) (0.30-0.82) K/mm3 Eos # (Auto) (0.04-0.54) K/mm3 Baso # (Auto) (0.01-0.08) K/mm3 Sodium 140 (136-145) mEq/L Potassium 3.9 (3.5-5.1) mEq/L Chloride 104 (98-107) mEq/L Carbon Dioxide 26 (21-32) mEq/L Anion Gap 13.9 (5-15) BUN 18 (7-18) mg/dL Creatinine 1.0 (0.7-1.3) mg/dL Est Cr Clr Drug Dosing 92.11 mL/min Estimated GFR (MDRD) > 60 (>60) mL/min BUN/Creatinine Ratio 18.0 (14-18) Glucose 122 H (70-99) mg/dL Calcium 8.1 L (8.5-10.1) mg/dL Magnesium 2.0 (1.8-2.4) mg/dL Total Bilirubin 0.9 (0.2-1.0) mg/dL AST 19 (15-37) U/L ALT 36 (16-63) U/L Alkaline Phosphatase 80 (46-116) U/L Total Protein 6.9 (6.4-8.2) g/dl Albumin 2.6 L (3.4-5.0) g/dl Globulin 4.3 gm/dL Albumin/Globulin Ratio 0.6 L (1-2) Med Orders - Current: Current Medications Acetaminophen (Acetaminophen 325 Mg Tab) 650 mg PO Q4H PRN PRN Reason: Pain (Mild 1-3)/fever Docusate Sodium (Docusate Sodium 100 Mg Cap) 100 mg PO Q12H PRN PRN Reason: Constipation Folic Acid (Folic Acid 1 Mg Tab) 1 mg PO DAILY [facility] Last Admin: 01/11/21 11:08 Dose: 1 mg Documented by: Furosemide (Furosemide 40 Mg/4 Ml Vial) 40 mg IVPUSH BIDDIURETIC [facility] Last Admin: 01/12/21 06:27 Dose: 40 mg Documented by: Melatonin (Melatonin 3 Mg Tab) 6 mg PO BEDTIME PRN PRN Reason: Insomnia Last Admin: 01/11/21 20:38 Dose: 6 mg Documented by: Miscellaneous Information (Remove Nicotine Patch) 1 ea TRDERM DAILY [facility] Nicotine (Nicotine 14 Mg/24 Hr Patch) 14 mg TRDERM DAILY [facility] Last Admin: 01/11/21 09:25 Dose: 14 mg Documented by: Ondansetron HCl (Ondansetron 4 Mg/2 Ml Sdv) 4 mg IV Q6H PRN PRN Reason: Nausea/Vomiting Pantoprazole Sodium (Pantoprazole 40 Mg Tab.Cr) 40 mg PO BID [facility] Last Admin: 01/11/21 20:37 Dose: 40 mg Documented by: Sodium Chloride (Sodium Chloride 0.9% 10 Ml Syringe) 10 ml FLUSH ASDIRECTED PRN PRN Reason: Keep Vein Open Last Admin: 01/10/21 17:32 Dose: 10 ml Documented by: Thiamine HCl (Thiamine 100 Mg Tab) 100 mg PO DAILY [facility] Last Admin: 01/11/21 11:08 Dose: 100 mg Documented by: Discontinued Medications Furosemide (Furosemide 40 Mg/4 Ml Vial) 40 mg IVPUSH NOW ONE Stop: 01/10/21 18:44 Last Admin: 01/10/21 18:57 Dose: 40 mg Documented by: Furosemide (Furosemide 40 Mg/4 Ml Vial) 40 mg IVPUSH ONETIME ONE Stop: 01/11/21 09:01 Last Admin: 01/11/21 09:25 Dose: 40 mg Documented by: Nicotine (Nicotine 14 Mg/24 Hr Patch) 14 mg TRDERM ONETIME ONE Stop: 01/10/21 19:40 Last Admin: 01/10/21 20:00 Dose: 14 mg Documented by: Pantoprazole Sodium (Pantoprazole 40 Mg Vial) 40 mg IVPUSH ONETIME ONE Stop: 01/10/21 20:44 Last Admin: 01/10/21 21:00 Dose: 40 mg Documented by: Pantoprazole Sodium (Pantoprazole 40 Mg Vial) 40 mg IVPUSH BID [facility] Last Admin: 01/11/21 09:25 Dose: 40 mg Documented by: - Exam Quality Assessment: DVT Prophylaxis. No: Supplemental Oxygen, Urine Catheter General: Alert, Oriented, Cooperative, No Acute Distress HEENT: Pupils Equal, Pupils Reactive, EOMI, Mucous Membr. Moist/[place] Neck: Supple, Trachea Midline Lungs: Clear to Auscultation, Normal Respiratory Effort Cardiovascular: Regular Rate, Regular Rhythm GI/Abdominal Exam: Normal Bowel Sounds, Soft, Non-Tender, No Distention (Male) Exam: Deferred Back Exam: Normal Inspection, Full Range of Motion Extremities: Normal Inspection, Normal Range of Motion, Non-Tender, Normal Capillary Refill, Pedal Edema (trace ) Peripheral Pulses: 2+: Radial (L), Radial (R), Dorsalis Pedis (L), Dorsalis Pedis (R) Skin: Warm, Dry, Intact Neurological: No New Focal Deficit Psy/Mental Status: Alert, Normal Affect, Normal Mood - Patient Data Lab Results Last 24 hrs: Laboratory Results - last 24 hr 01/11/21 01/11/21 01/11/21 Range/Units 07:59 07:59 13:06 WBC 5.32 (4.23-9.07) K/mm3 RBC 2.91 L (4.63-6.08) M/mm3 Hgb 7.8 L 8.7 L (13.7-17.5) gm/dl Hct 25.9 L 29.1 L (40.1-51.0) % MCV 89.0 (79.0-92.2) fl MCH 26.8 (25.7-32.2) pg MCHC 30.1 L (32.2-35.5) g/dl RDW Std Deviation 52.1 H (35.1-43.9) fL Plt Count 276 (163-337) K/mm3 MPV 9.9 (9.4-12.3) fl Neut % (Auto) 66.0 (34.0-67.9) % Lymph % (Auto) 19.7 L (21.8-53.1) % Pierce % (Auto) 12.8 H (5.3-12.2) % Eos % (Auto) 1.3 (0.8-7.0) Baso % (Auto) 0.2 (0.1-1.2) % Neut # (Auto) 3.51 (1.78-5.38) K/mm3 Lymph # (Auto) 1.05 L (1.32-3.57) K/mm3 Pierce # (Auto) 0.68 (0.30-0.82) K/mm3 Eos # (Auto) 0.07 (0.04-0.54) K/mm3 Baso # (Auto) 0.01 (0.01-0.08) K/mm3 Sodium 137 (136-145) mEq/L Potassium 4.1 (3.5-5.1) mEq/L Chloride 104 (98-107) mEq/L Carbon Dioxide 28 (21-32) mEq/L Anion Gap 9.1 (5-15) BUN 15 (7-18) mg/dL Creatinine 0.9 (0.7-1.3) mg/dL Est Cr Clr Drug Dosing 102.34 mL/min Estimated GFR (MDRD) > 60 (>60) mL/min BUN/Creatinine Ratio 16.7 (14-18) Glucose 98 (70-99) mg/dL Calcium 7.8 L (8.5-10.1) mg/dL Magnesium 1.9 (1.8-2.4) mg/dL Total Bilirubin 0.8 (0.2-1.0) mg/dL AST 21 (15-37) U/L ALT 33 (16-63) U/L Alkaline Phosphatase 76 (46-116) U/L Total Protein 6.3 L (6.4-8.2) g/dl Albumin 2.5 L (3.4-5.0) g/dl Globulin 3.8 gm/dL Albumin/Globulin Ratio 0.7 L (1-2) 01/11/21 01/12/21 01/12/21 Range/Units 19:23 01:20 04:44 WBC 5.95 (4.23-9.07) K/mm3 RBC 3.47 L (4.63-6.08) M/mm3 Hgb 9.5 L 8.7 L 9.1 L (13.7-17.5) gm/dl Hct 31.7 L 29.3 L 30.1 L (40.1-51.0) % MCV 86.7 (79.0-92.2) fl MCH 26.2 (25.7-32.2) pg MCHC 30.2 L (32.2-35.5) g/dl RDW Std Deviation 51.7 H (35.1-43.9) fL Plt Count 324 (163-337) K/mm3 MPV 10.1 (9.4-12.3) fl Neut % (Auto) 63.5 (34.0-67.9) % Lymph % (Auto) 20.7 L (21.8-53.1) % Pierce % (Auto) 14.1 H (5.3-12.2) % Eos % (Auto) 1.2 (0.8-7.0) Baso % (Auto) 0.3 (0.1-1.2) % Neut # (Auto) 3.78 (1.78-5.38) K/mm3 Lymph # (Auto) 1.23 L (1.32-3.57) K/mm3 Pierce # (Auto) 0.84 H (0.30-0.82) K/mm3 Eos # (Auto) 0.07 (0.04-0.54) K/mm3 Baso # (Auto) 0.02 (0.01-0.08) K/mm3 Sodium (136-145) mEq/L Potassium (3.5-5.1) mEq/L Chloride (98-107) mEq/L Carbon Dioxide (21-32) mEq/L Anion Gap (5-15) BUN (7-18) mg/dL Creatinine (0.7-1.3) mg/dL Est Cr Clr Drug Dosing mL/min Estimated GFR (MDRD) (>60) mL/min BUN/Creatinine Ratio (14-18) Glucose (70-99) mg/dL Calcium (8.5-10.1) mg/dL Magnesium (1.8-2.4) mg/dL Total Bilirubin (0.2-1.0) mg/dL AST (15-37) U/L ALT (16-63) U/L Alkaline Phosphatase (46-116) U/L Total Protein (6.4-8.2) g/dl Albumin (3.4-5.0) g/dl Globulin gm/dL Albumin/Globulin Ratio (1-2) 01/12/21 Range/Units 04:44 WBC (4.23-9.07) K/mm3 RBC (4.63-6.08) M/mm3 Hgb (13.7-17.5) gm/dl Hct (40.1-51.0) % MCV (79.0-92.2) fl MCH (25.7-32.2) pg MCHC (32.2-35.5) g/dl RDW Std Deviation (35.1-43.9) fL Plt Count (163-337) K/mm3 MPV (9.4-12.3) fl Neut % (Auto) (34.0-67.9) % Lymph % (Auto) (21.8-53.1) % Pierce % (Auto) (5.3-12.2) % Eos % (Auto) (0.8-7.0) Baso % (Auto) (0.1-1.2) % Neut # (Auto) (1.78-5.38) K/mm3 Lymph # (Auto) (1.32-3.57) K/mm3 Pierce # (Auto) (0.30-0.82) K/mm3 Eos # (Auto) (0.04-0.54) K/mm3 Baso # (Auto) (0.01-0.08) K/mm3 Sodium 140 (136-145) mEq/L Potassium 3.9 (3.5-5.1) mEq/L Chloride 104 (98-107) mEq/L Carbon Dioxide 26 (21-32) mEq/L Anion Gap 13.9 (5-15) BUN 18 (7-18) mg/dL Creatinine 1.0 (0.7-1.3) mg/dL Est Cr Clr Drug Dosing 92.11 mL/min Estimated GFR (MDRD) > 60 (>60) mL/min BUN/Creatinine Ratio 18.0 (14-18) Glucose 122 H (70-99) mg/dL Calcium 8.1 L (8.5-10.1) mg/dL Magnesium 2.0 (1.8-2.4) mg/dL Total Bilirubin 0.9 (0.2-1.0) mg/dL AST 19 (15-37) U/L ALT 36 (16-63) U/L Alkaline Phosphatase 80 (46-116) U/L Total Protein 6.9 (6.4-8.2) g/dl Albumin 2.6 L (3.4-5.0) g/dl Globulin 4.3 gm/dL Albumin/Globulin Ratio 0.6 L (1-2) Result Diagrams: 01/12/21 04:44 01/12/21 04:44 Sepsis Event Note - Evaluation Sepsis Screening Result: No Definite Risk - Focused Exam Vital Signs: Vital Signs Temp Temp Pulse Resp BP Pulse Ox 01/12/21 01:39 97.7 F 116 H 18 125/97 H 99 01/11/21 22:00 98.1 F 115 H 20 122/78 95 - Problem List & Annotations (1) Tachycardia SNOMED Code(s): 6112039 Code(s): R00.0 - TACHYCARDIA, UNSPECIFIED Status: Acute Priority: Medium Current Visit: Yes (2) Lower GI bleed SNOMED Code(s): 09022875 Code(s): K92.2 - GASTROINTESTINAL HEMORRHAGE, UNSPECIFIED Status: Acute Priority: Medium Current Visit: Yes (3) Murmur SNOMED Code(s): 25295771 Code(s): R01.1 - CARDIAC MURMUR, UNSPECIFIED Status: Acute Priority: High Current Visit: Yes (4) Pedal edema SNOMED Code(s): 999541276 Code(s): R60.0 - LOCALIZED EDEMA Status: Acute Priority: High Current Visit: Yes (5) Tobacco use disorder SNOMED Code(s): 383614738 Code(s): F17.200 - NICOTINE DEPENDENCE, UNSPECIFIED, UNCOMPLICATED Status: Chronic Priority: Medium Current Visit: Yes (6) Alcohol use SNOMED Code(s): 767956 Code(s): Z72.89 - OTHER PROBLEMS RELATED TO LIFESTYLE Status: Chronic Priority: Medium Current Visit: Yes (7) History of COVID-19 SNOMED Code(s): 724961360455931826, [id number] Code(s): Z86.16 - PERSONAL HISTORY OF COVID-19 Status: Chronic Priority: Medium Current Visit: Yes (8) Anemia SNOMED Code(s): 037827450 Code(s): D64.9 - ANEMIA, UNSPECIFIED Status: Acute Priority: High Current Visit: Yes Qualifiers: Anemia type: other cause Other causes of anemia: other cause, not classified Qualified Code(s): D64.89 - Other specified anemias (9) New onset of congestive heart failure SNOMED Code(s): 30718663 Code(s): I50.9 - HEART FAILURE, UNSPECIFIED Status: Acute Priority: High Current Visit: Yes - Problem List Review Problem List Initiated/Reviewed/Updated: Yes - My Orders Last 24 Hours: My Active Orders 01/11/21 Breakfast Fluid Restriction [DIET] 01/11/21 07:44 Height and Weight [RC] DAILY Intake and Output Strict [RC] ASDIRECTED Acetaminophen [TylenoL] 650 mg PO Q4H PRN Docusate Sodium [Colace] 100 mg PO Q12H PRN Ondansetron [Zofran] 4 mg IV Q6H PRN 01/11/21 07:45 Pulse Oximetry [RC] PRN Vital Signs [RC] 04,10,16,22 01/11/21 07:50 OCCULT BLOOD DIAGNOSTIC [OP] Routine 01/11/21 09:00 Nicotine [Habitrol] 14 mg TRDERM DAILY 01/11/21 10:30 CIWAA Assessment [RC] Q4HR Up ad Delfina [RC] ASDIRECTED Folic Acid 1 mg PO DAILY Thiamine [Vitamin B-1] 100 mg PO DAILY 01/11/21 10:33 Consult to Biomedical Engineering Internship [CONS] Routine 01/11/21 14:00 Furosemide [Lasix] 40 mg IVPUSH BIDDIURETIC 01/11/21 21:00 Pantoprazole [ProTONIX] 40 mg PO BID 01/12/21 09:00 Remove Patch 1 ea TRDERM DAILY 01/13/21 05:11 CBC WITH AUTO DIFF [HEME] AM COMPREHENSIVE METABOLIC PN,CMP [CHEM] AM MAGNESIUM [CHEM] AM 01/14/21 05:11 CBC WITH AUTO DIFF [HEME] AM COMPREHENSIVE METABOLIC PN,CMP [CHEM] AM MAGNESIUM [CHEM] AM 01/15/21 05:11 CBC WITH AUTO DIFF [HEME] AM COMPREHENSIVE METABOLIC PN,CMP [CHEM] AM MAGNESIUM [CHEM] AM - Assessment Assessment:: Assessment - 01/11/2021 (admitted late 01/10/2021) * 55-year-old male who presents to our ED on the evening of 01/10/2021 with short ness of breath and ankle swelling * History of anxiety. He is a daily 1.5 pack/day smoker * Appreciates a 26 pound weight gain over the last few weeks * Diagnosed with Covid in early November on the and a CT angiogram of his chest was done showing bilateral COVID-19 pneumonia and a possible clot in the peripheral artery * Started on Xarelto * Has since noticed that he was getting more and more shortness of breath with exertion * Reports orthopnea but denies any chest pain. No fever but had some chills. Denies any abdominal pain, nausea, vomiting. * 12-lead EKG is obtained showing a sinus tachycardia 116 bpm. There are Q waves noted in the inferior leads. * Labs are obtained: * WBC of 5.68. * Hemoglobin 8.4. He is normocytic. * Platelet 310,000. * Neutrophils are normal at 66.8%. * Sodium 138. * Potassium 4.5. * Chloride 105. * Carbon dioxide 27. * Anion gap is 10.5. * BUN is 19. Creatinine 0.9. GFR greater than 60. * Glucose is 103. * Total bilirubin 0.6. * AST is 24, ALT 36, alkaline phosphatase 83. * Troponin is less than 0.017. * proBNP is 3799. * Protein is 6.7. * Albumin 2.7. * Chest x-ray is obtained showing mildly increased lung markings which appear stable and old rib fractures but nothing acute. * He is given 40 mg IV push Lasix and has 800 mL of output. * Of note there is a new systolic murmur noted. * Subsequently admitted to the medical floor for management of his suspected new onset CHF. 01/12/2021 55-year-old admitted for new onset CHF. Unfortunately his echocardiogram reviewed a very low EF with biatrial dilation, and rather significant mitral and tricuspid valve regurgitation. We will continue diuresis with a goal weight between 210 and 215. Per recommendations from Dr. Sanchez, cardiology will start low-dose Entresto and metoprolol thereafter. He will need cardiology and primary care follow-up. This morning he weighed 219 pounds and 4 ounces. He remains tachycardic at 113 bpm. Blood pressure is 134/86. Labs show a WBC of 5.95. Hemoglobin is up to 9.1 with hematocrit of 30.1. Occult stool is still pending. Platelet 324,000. Sodium is 140. Potassium is 3.9. Chloride 104. Carbon oxide 26. Anion gap 13.9. BUN is 18. Creatinine 1.0. GFR greater than 60. Protein is 6.9 and albumin 2.6. He remains on a 1.5 L fluid restriction and sodium restriction. CIWA score has been 0-1 he remains on thiamine and folic acid supplementation. He has had just over 4L output. Likely discharge in 2 to 3 days pending continued improvement. - Plan Plan:: New onset of congestive heart failure Tachycardia Murmur Pedal edema * 40mg BID Diuretic IVP lasix * Telemetry * Strict I&O * Daily weights (Goal dry weight of 210-215) * 1.5L fluid restriction * Heart healthy diet (low sodium) * Biomedical Engineering Internship consultation * Echocardiogram obtained and pending * Cardiology follow-up * Consider Entresto * No need for PT/OT currently * Monitor vital signs * Monitor electrolytes * Daily labs Anemia Lower GI bleed * Daily labs * Daily PO Protonix * Hold home Xarelto * SCDs * Consider surgical consult although poor candidate due to new onset CHF Tobacco use disorder * Daily nicotine patch * Cessation counseling * Offer patches on discharge Alcohol use * Reports social ETOH use * Known history of rather significant ETOH use * Q4HR CIWAA protocol * Start thiamine supplementation daily * Start folic acid supplementation * Monitor History of COVID-19 * No acute concerns * ? Cardiomyopathy / Covid Code status: Full Code PCP: Dr. Becerra DVT prophylaxis: SCDs (pharmacological contraindicated due to GI bleed) Disposition: Patient admitted to OB as MedSurg overflow for new onset CHF work- up on telemetry. Length of stay likely 2-3 more days
[2021-01-12] MEDS: Thiamine 100 MG Tab PO SCH (09:20)
[2021-01-12] MEDS: Folic Acid 1 MG Tab PO SCH (09:20)
[2021-01-12] MEDS: Pantoprazole 40 MG Tab.CR PO SCH (09:20)
[2021-01-12] MEDS: Nicotine 14 MG/24 Hr Patch TRDERM SCH (09:40)
[2021-01-12] MEDS: Metoprolol Tartrate 5 MG/5 ML SDV IVPUSH STA ×2 (14:15→14:58)
[2021-01-12] MEDS ORDERED: Metoprolol Tartrate 5 MG/5 ML SDV ONE (14:16)
[2021-01-12] MEDS ORDERED: Adenosine 6 MG/2 ML SDV IVPUSH ONE (14:30)
--- NOTE | 2021-01-12 14:55 | PCM.EKG ---
#1 Interpretation EKG Date: 01/12/21 Time: 14:19 Rhythm: Other (Supraventricular tachycardia) Rate (Beats/Min): 165 [facility]: Normal P-Wave: Present QRS: Normal ST-T: Depressed (ST segment downsloping depression noted in V4 through V6. May be rate dependent but cannot rule out ischemia. T wave inversion in inferior leads, V4 through V6.) QT: Prolonged (QTc 517) Comparison: Change From Previous EKG (Acute onset SVT) EKG Interpretation Comments: Supraventricular tachycardia at a rate of 165. New onset Q waves noted in III and aVF. LVH with repolarization abnormality also noted. Abnormal EKG. #2 Interpretation EKG Date: 01/12/21 Time: 14:23 Rhythm: Other (Sinus tachycardia) Rate (Beats/Min): 111 [facility]: Normal P-Wave: Present QRS: Normal ST-T: Depressed (Mild horizontal ST depression noted in V4 with downsloping ST depression noted in V5 and V6.) QT: Normal Comparison: Change From Previous EKG (Resolution of SVT) EKG Interpretation Comments: Sinus tachycardia at 111 bpm with LVH and secondary repolarization abnormality pattern noted. Q waves in 3 and aVF. T wave inversion in inferior leads, V4 through V6. Abnormal EKG.
[2021-01-12] MEDS ORDERED: Metoprolol Tartrate 25 MG Tab PO ONE (14:59)
--- NOTE | 2021-01-12 15:07 | PCM.SN.2 ---
- Free Text/Narrative Note: Notified by ICU nursing that patient is at a rate of 160 bpm. Presented to ED to find nurse at bedside obtaining blood pressure. Blood pressure is noted to be 120 systolic. Patient reports he does feel like his heart is racing but he has no other complaints. He has no history of any SVT. He was laying in bed when episode began. Dr. Brooks, attending hospitalist at bedside. Twelve-lead EKG is ordered and rapid response is called. Patient noted to be in a supraventricular tachycardia rhythm with a rate of 165. EKG also shows LVH pattern with secondary repolarization abnormality. Q waves are noted in III and aVF with T wave inversion in inferior leads and V4 through V6. There is also downsloping ST depression noted in V4 through V6. EKG changes may be rate dependent however cannot rule out ischemia. Patient noted to be hemodynamically stable at the moment with good oxygen saturations and good mentation. 6 mg IV push adenosine ordered and administered by nursing. 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 Very brief sinus pause noted and patient's heart rate does return to low 110s which has been his baseline. Repeat twelve-lead EKG is obtained showing a sinus tachycardia with LVH and secondary repolarization abnormality pattern. Q waves are again noted in III and aVF. T wave inversion noted in inferior leads and V4 through V5 with ST segment horizontal depression noted in V4 and downsloping depression noted in V5 and V6. Stat troponin, CMP, CBC, and magnesium are obtained by lab and are pending. Order placed for 12.5 mg p.o. Metroprolol tartrate administered now and twice daily thereafter. We will repeat twelve-lead EKG in 1/2-hour and admit patient to ICU for further monitoring. We will discontinue Lasix for now and resume 20 mg IV push Lasix in the morning. Time Documentation
--- NOTE | 2021-01-12 16:00 | PCM.EKG ---
#1 Interpretation EKG Date: 01/12/21 Time: 15:13 Rhythm: Other (Sinus tachycardia) Rate (Beats/Min): 108 [place]: Normal P-Wave: Present QRS: Normal ST-T: Other (Mild ST depression in V4 through V6.) QT: Normal Comparison: No Change (From EKG s/p SVT) EKG Interpretation Comments: Sinus tachycardia at 108 bpm. Q waves noted in three and aVF. T wave flattening I, aVL, and inferior leads. LVH pattern with repolarization abnormality. T wave inversion noted in V4 through V6 with mild ST depression. PAC noted.
[2021-01-12] MEDS ORDERED: Metoprolol Tartrate 25 MG Tab PO SCH (21:00)
[2021-01-13] MEDS: Nicotine 14 MG/24 Hr Patch TRDERM SCH (09:02)
[2021-01-13] MEDS: Folic Acid 1 MG Tab PO SCH (09:03)
[2021-01-13] MEDS: Metoprolol Succinate 50 MG Tab.ER PO SCH (09:03)
[2021-01-13] MEDS: Thiamine 100 MG Tab PO SCH (09:03)
[2021-01-13] MEDS: Pantoprazole 40 MG Tab.CR PO SCH (09:05)
[2021-01-13] MEDS: Furosemide 20 MG/2 ML VIAL IVPUSH SCH (09:05)
--- NOTE | 2021-01-13 17:30 | PCM.PN ---
- General Info Date of Service: 01/13/21 Admission Dx/Problem (Free Text): Admission Diagnosis/Problem Admission Diagnosis/Problem Congestive heart failure Subjective Update: Patient is feeling much better. Denies any shortness of breath, palpitations, or chest pain. He has had significant decrease in weight and his lower extremity swelling is improved. Functional Status: Reports: Pain Controlled - Review of Systems General: Reports: No Symptoms HEENT: Reports: No Symptoms Pulmonary: Reports: No Symptoms Cardiovascular: Reports: No Symptoms Gastrointestinal: Reports: No Symptoms Musculoskeletal: Reports: No Symptoms - Patient Data Vitals - Most Recent: Last Vital Signs Temp 96.7 F L 01/13/21 12:00 Pulse 110 H 01/13/21 09:03 Resp 16 01/13/21 12:00 BP 116/83 01/13/21 12:27 Pulse Ox 97 01/13/21 12:27 Weight - Most Recent: 212 lb 8 oz I&O - Last 24 Hours: Intake & Output 01/13/21 01/13/21 01/13/21 06:59 14:59 22:59 Intake Total 350 240 300 Output Total 225 Balance 125 240 300 Lab Results Last 24 Hours: Laboratory Results - last 24 hr 01/13/21 01/13/21 Range/Units 05:50 05:50 WBC 6.57 (4.23-9.07) K/mm3 RBC 3.61 L (4.63-6.08) M/mm3 Hgb 9.3 L (13.7-17.5) gm/dl Hct 31.4 L (40.1-51.0) % MCV 87.0 (79.0-92.2) fl MCH 25.8 (25.7-32.2) pg MCHC 29.6 L (32.2-35.5) g/dl RDW Std Deviation 52.6 H (35.1-43.9) fL Plt Count 333 (163-337) K/mm3 MPV 9.7 (9.4-12.3) fl Neut % (Auto) 58.4 (34.0-67.9) % Lymph % (Auto) 24.7 (21.8-53.1) % Bowman % (Auto) 14.8 H (5.3-12.2) % Eos % (Auto) 1.5 (0.8-7.0) Baso % (Auto) 0.3 (0.1-1.2) % Neut # (Auto) 3.84 (1.78-5.38) K/mm3 Lymph # (Auto) 1.62 (1.32-3.57) K/mm3 Bowman # (Auto) 0.97 H (0.30-0.82) K/mm3 Eos # (Auto) 0.10 (0.04-0.54) K/mm3 Baso # (Auto) 0.02 (0.01-0.08) K/mm3 Sodium 138 (136-145) mEq/L Potassium 4.2 (3.5-5.1) mEq/L Chloride 104 (98-107) mEq/L Carbon Dioxide 26 (21-32) mEq/L Anion Gap 12.2 (5-15) BUN 21 H (7-18) mg/dL Creatinine 0.9 (0.7-1.3) mg/dL Est Cr Clr Drug Dosing 102.34 mL/min Estimated GFR (MDRD) > 60 (>60) mL/min BUN/Creatinine Ratio 23.3 H (14-18) Glucose 122 H (70-99) mg/dL Calcium 8.0 L (8.5-10.1) mg/dL Magnesium 1.9 (1.8-2.4) mg/dL Total Bilirubin 0.6 (0.2-1.0) mg/dL AST 20 (15-37) U/L ALT 31 (16-63) U/L Alkaline Phosphatase 77 (46-116) U/L Total Protein 6.7 (6.4-8.2) g/dl Albumin 2.7 L (3.4-5.0) g/dl Globulin 4.0 gm/dL Albumin/Globulin Ratio 0.7 L (1-2) Keith Results Last 24 Hours: Microbiology 01/12/21 07:50 Stool Occult Blood (KEITH) - Final Stool / Feces Med Orders - Current: Current Medications Acetaminophen (Acetaminophen 325 Mg Tab) 650 mg PO Q4H PRN PRN Reason: Pain (Mild 1-3)/fever Docusate Sodium (Docusate Sodium 100 Mg Cap) 100 mg PO Q12H PRN PRN Reason: Constipation Last Admin: 01/12/21 09:20 Dose: 100 mg Documented by: Folic Acid (Folic Acid 1 Mg Tab) 1 mg PO DAILY [facility] Last Admin: 01/13/21 09:03 Dose: 1 mg Documented by: Furosemide (Furosemide 20 Mg/2 Ml Vial) 20 mg IVPUSH DAILY [facility] Last Admin: 01/13/21 09:05 Dose: 20 mg Documented by: Melatonin (Melatonin 3 Mg Tab) 6 mg PO BEDTIME PRN PRN Reason: Insomnia Last Admin: 01/11/21 20:38 Dose: 6 mg Documented by: Metoprolol Succinate (Metoprolol Succinate 50 Mg Tab.Er) 50 mg PO DAILY [facility] Last Admin: 01/13/21 09:03 Dose: 50 mg Documented by: Miscellaneous Information (Remove Nicotine Patch) 1 ea TRDERM DAILY [facility] Last Admin: 01/13/21 09:06 Dose: 1 ea Documented by: Nicotine (Nicotine 14 Mg/24 Hr Patch) 14 mg TRDERM DAILY [facility] Last Admin: 01/13/21 09:02 Dose: 14 mg Documented by: Ondansetron HCl (Ondansetron 4 Mg/2 Ml Sdv) 4 mg IV Q6H PRN PRN Reason: Nausea/Vomiting Pantoprazole Sodium (Pantoprazole 40 Mg Tab.Cr) 40 mg PO DAILY [facility] Last Admin: 01/13/21 09:05 Dose: 40 mg Documented by: Sodium Chloride (Sodium Chloride 0.9% 10 Ml Syringe) 10 ml FLUSH ASDIRECTED PRN PRN Reason: Keep Vein Open Last Admin: 01/10/21 17:32 Dose: 10 ml Documented by: Thiamine HCl (Thiamine 100 Mg Tab) 100 mg PO DAILY [facility] Last Admin: 01/13/21 09:03 Dose: 100 mg Documented by: Discontinued Medications Adenosine (Adenosine 6 Mg/2 Ml Sdv) 6 mg IVPUSH NOW ONE Stop: 01/12/21 14:31 Last Admin: 01/12/21 14:17 Dose: 6 mg Documented by: Furosemide (Furosemide 40 Mg/4 Ml Vial) 40 mg IVPUSH NOW ONE Stop: 01/10/21 18:44 Last Admin: 01/10/21 18:57 Dose: 40 mg Documented by: Furosemide (Furosemide 40 Mg/4 Ml Vial) 40 mg IVPUSH ONETIME ONE Stop: 01/11/21 09:01 Last Admin: 01/11/21 09:25 Dose: 40 mg Documented by: Furosemide (Furosemide 40 Mg/4 Ml Vial) 40 mg IVPUSH BIDDIURETIC [facility] Last Admin: 01/12/21 14:58 Dose: Not Given Documented by: Metoprolol Tartrate (Metoprolol Tartrate 5 Mg/5 Ml Sdv) 5 mg IVPUSH ONETIME STA Stop: 01/12/21 14:15 Last Admin: 01/12/21 14:58 Dose: Not Given Documented by: Metoprolol Tartrate (Metoprolol Tartrate 5 Mg/5 Ml Sdv) Confirm Administered Dose 5 mg .ROUTE .STK-MED ONE Stop: 01/12/21 14:17 Last Admin: 01/12/21 14:58 Dose: Not Given Documented by: Metoprolol Tartrate (Metoprolol Tartrate 25 Mg Tab) 12.5 mg PO BID [facility] Last Admin: 01/12/21 20:42 Dose: 12.5 mg Documented by: Metoprolol Tartrate (Metoprolol Tartrate 25 Mg Tab) 12.5 mg PO ONETIME ONE Stop: 01/12/21 15:00 Last Admin: 01/12/21 15:12 Dose: 12.5 mg Documented by: Nicotine (Nicotine 14 Mg/24 Hr Patch) 14 mg TRDERM ONETIME ONE Stop: 01/10/21 19:40 Last Admin: 01/10/21 20:00 Dose: 14 mg Documented by: Pantoprazole Sodium (Pantoprazole 40 Mg Vial) 40 mg IVPUSH ONETIME ONE Stop: 01/10/21 20:44 Last Admin: 01/10/21 21:00 Dose: 40 mg Documented by: Pantoprazole Sodium (Pantoprazole 40 Mg Vial) 40 mg IVPUSH BID [facility] Last Admin: 01/11/21 09:25 Dose: 40 mg Documented by: Pantoprazole Sodium (Pantoprazole 40 Mg Tab.Cr) 40 mg PO BID [facility] Last Admin: 01/12/21 09:20 Dose: 40 mg Documented by: - Exam Quality Assessment: No: Supplemental Oxygen General: Alert, Oriented HEENT: Pupils Equal, Mucous Membr. Moist/Tarnov Lungs: Normal Respiratory Effort, Crackles (Scattered) Cardiovascular: Regular Rhythm, Tachycardia (Low 100s) GI/Abdominal Exam: Normal Bowel Sounds, Soft, Non-Tender, No Organomegaly, No Distention, No Abnormal Bruit, No Mass Extremities: Normal Capillary Refill, Pedal Edema (1+ pitting edema) Skin: Warm, Dry, Intact Psy/Mental Status: Alert, Normal Affect, Normal Mood - Patient Data Lab Results Last 24 hrs: Laboratory Results - last 24 hr 01/13/21 01/13/21 Range/Units 05:50 05:50 WBC 6.57 (4.23-9.07) K/mm3 RBC 3.61 L (4.63-6.08) M/mm3 Hgb 9.3 L (13.7-17.5) gm/dl Hct 31.4 L (40.1-51.0) % MCV 87.0 (79.0-92.2) fl MCH 25.8 (25.7-32.2) pg MCHC 29.6 L (32.2-35.5) g/dl RDW Std Deviation 52.6 H (35.1-43.9) fL Plt Count 333 (163-337) K/mm3 MPV 9.7 (9.4-12.3) fl Neut % (Auto) 58.4 (34.0-67.9) % Lymph % (Auto) 24.7 (21.8-53.1) % Bowman % (Auto) 14.8 H (5.3-12.2) % Eos % (Auto) 1.5 (0.8-7.0) Baso % (Auto) 0.3 (0.1-1.2) % Neut # (Auto) 3.84 (1.78-5.38) K/mm3 Lymph # (Auto) 1.62 (1.32-3.57) K/mm3 Bowman # (Auto) 0.97 H (0.30-0.82) K/mm3 Eos # (Auto) 0.10 (0.04-0.54) K/mm3 Baso # (Auto) 0.02 (0.01-0.08) K/mm3 Sodium 138 (136-145) mEq/L Potassium 4.2 (3.5-5.1) mEq/L Chloride 104 (98-107) mEq/L Carbon Dioxide 26 (21-32) mEq/L Anion Gap 12.2 (5-15) BUN 21 H (7-18) mg/dL Creatinine 0.9 (0.7-1.3) mg/dL Est Cr Clr Drug Dosing 102.34 mL/min Estimated GFR (MDRD) > 60 (>60) mL/min BUN/Creatinine Ratio 23.3 H (14-18) Glucose 122 H (70-99) mg/dL Calcium 8.0 L (8.5-10.1) mg/dL Magnesium 1.9 (1.8-2.4) mg/dL Total Bilirubin 0.6 (0.2-1.0) mg/dL AST 20 (15-37) U/L ALT 31 (16-63) U/L Alkaline Phosphatase 77 (46-116) U/L Total Protein 6.7 (6.4-8.2) g/dl Albumin 2.7 L (3.4-5.0) g/dl Globulin 4.0 gm/dL Albumin/Globulin Ratio 0.7 L (1-2) Result Diagrams: 01/13/21 05:50 01/13/21 05:50 Keith Results Last 24 hrs: Microbiology 01/12/21 07:50 Stool Occult Blood (KEITH) - Final Stool / Feces Sepsis Event Note - Evaluation Sepsis Screening Result: No Definite Risk - Focused Exam Vital Signs: Vital Signs Temp Pulse Resp BP BP Pulse Ox 01/13/21 12:27 116/83 97 01/13/21 12:00 96.7 F L 16 116/83 95 01/13/21 09:11 97 01/13/21 09:03 110 H 130/94 H 01/13/21 09:00 95 01/13/21 08:54 97.8 F 16 130/94 H 98 01/13/21 08:53 130/94 H 97 01/13/21 05:34 96 - Problem List & Annotations (1) Anemia SNOMED Code(s): 547163227 Code(s): D64.9 - ANEMIA, UNSPECIFIED Status: Acute Priority: High Curre nt Visit: Yes Qualifiers: Anemia type: other cause Other causes of anemia: other cause, not classified Qualified Code(s): D64.89 - Other specified anemias (2) New onset of congestive heart failure SNOMED Code(s): 05125867 Code(s): I50.9 - HEART FAILURE, UNSPECIFIED Status: Acute Priority: High Current Visit: Yes (3) Alcohol use SNOMED Code(s): 644699 Code(s): Z72.89 - OTHER PROBLEMS RELATED TO LIFESTYLE Status: Chronic Priority: Medium Current Visit: Yes (4) History of COVID-19 SNOMED Code(s): 595203690089103501, 613107575724660366 Code(s): Z86.16 - PERSONAL HISTORY OF COVID-19 Status: Chronic Priority: Medium Current Visit: Yes (5) Tobacco use disorder SNOMED Code(s): 616925048 Code(s): F17.200 - NICOTINE DEPENDENCE, UNSPECIFIED, UNCOMPLICATED Status: Chronic Priority: Medium Current Visit: Yes (6) Pulmonary embolism on left SNOMED Code(s): 43728078 Code(s): I26.99 - OTHER PULMONARY EMBOLISM WITHOUT ACUTE COR PULMONALE Status: Acute Current Visit: No - Problem List Review Problem List Initiated/Reviewed/Updated: Yes - My Orders Last 24 Hours: My Active Orders 01/13/21 09:00 Metoprolol Succinate [Toprol XL] 50 mg PO DAILY 01/13/21 21:00 Sacubitril/Valsartan [Entresto 49 MG-51 MG Tablet] 1 each PO BID - Assessment Assessment:: Assessment - 01/11/2021 (admitted late 01/10/2021) * 55-year-old male who presents to our ED on the evening of 01/10/2021 with shortness of breath and ankle swelling * History of anxiety. He is a daily 1.5 pack/day smoker * Appreciates a 26 pound weight gain over the last few weeks * Diagnosed with Covid in early November on the and a CT angiogram of his chest was done showing bilateral COVID-19 pneumonia and a possible clot in the peripheral artery * Started on Xarelto * Has since noticed that he was getting more and more shortness of breath with exertion * Reports orthopnea but denies any chest pain. No fever but had some chills. Denies any abdominal pain, nausea, vomiting. * 12-lead EKG is obtained showing a sinus tachycardia 116 bpm. There are Q waves noted in the inferior leads. * Labs are obtained: * WBC of 5.68. * Hemoglobin 8.4. He is normocytic. * Platelet 310,000. * Neutrophils are normal at 66.8%. * Sodium 138. * Potassium 4.5. * Chloride 105. * Carbon dioxide 27. * Anion gap is 10.5. * BUN is 19. Creatinine 0.9. GFR greater than 60. * Glucose is 103. * Total bilirubin 0.6. * AST is 24, ALT 36, alkaline phosphatase 83. * Troponin is less than 0.017. * proBNP is 3799. * Protein is 6.7. * Albumin 2.7. * Chest x-ray is obtained showing mildly increased lung markings which appear stable and old rib fractures but nothing acute. * He is given 40 mg IV push Lasix and has 800 mL of output. * Of note there is a new systolic murmur noted. * Subsequently admitted to the medical floor for management of his suspected new onset CHF. 01/12/2021 55-year-old admitted for new onset CHF. Unfortunately his echocardiogram reviewed a very low EF with biatrial dilation, and rather significant mitral and tricuspid valve regurgitation. We will continue diuresis with a goal weight between 210 and 215. Per recommendations from Dr. Sanchez, cardiology will start low-dose Entresto and metoprolol thereafter. He will need cardiology and primary care follow-up. This morning he weighed 219 pounds and 4 ounces. He remains tachycardic at 113 bpm. Blood pressure is 134/86. Labs show a WBC of 5.95. Hemoglobin is up to 9.1 with hematocrit of 30.1. Occult stool is still pending. Platelet 324,000. Sodium is 140. Potassium is 3.9. Chloride 104. Carbon oxide 26. Anion gap 13.9. BUN is 18. Creatinine 1.0. GFR greater than 60. Protein is 6.9 and albumin 2.6. He remains on a 1.5 L fluid restriction and sodium restriction. CIWA score has been 0-1 he remains on thiamine and folic acid supplementation. He has had just over 4L output. Likely discharge in 2 to 3 days pending continued improvement. 01/13/2021 55-year-old male with new onset CHF presumably from COVID-19 infection last month. Patient had episode yesterday of SVT requiring 6 mg of adenosine. Patient was started then on metoprolol tartrate with good results. This morning he was started on metoprolol succinate 50 mg daily. He has had a significant weight loss of 32 pounds. Patient blood pressure has tolerated the metoprolol with systolic blood pressures in the 120s 130s. Plan is to start him on Entresto also. Patient's heart rate has continued to be in the low 100s after the metoprolol succinate this morning. This will need to be followed and possibly titrated up. CIWA protocol was started secondary to his history of moderate drinking. He was also started on thiamine and folic acid supplementation. Hemoglobin has stabilized and is at 9.3. Albumin continues to be low at 2.7. Electrolytes are stable and currently in normal range. - Plan Plan:: New onset of congestive heart failure Tachycardia Murmur Pedal edema * Lasix 20 mg IV this morning. Continue to monitor and adjust appropriately. * Telemetry * Strict I&O * Daily weights (Goal dry weight of 210-215) at goal weight * 1.5L fluid restriction * Heart healthy diet (low sodium) * Driver/Guide consultation * Echocardiogram ejection fraction less than 20% * Cardiology follow-up * Start Entresto 49 mg / 51 mg p.o. twice daily * No need for PT/OT currently * Monitor vital signs * Monitor electrolytes * Daily labs Anemia Lower GI bleed Subsegmental pulmonary embolism found on December 02 * Daily labs * Daily PO Protonix * Hold home Xarelto * SCDs * Consider surgical consult although poor candidate due to new onset CHF Tobacco use disorder * Daily nicotine patch * Cessation counseling * Offer patches on discharge Alcohol use * Reports social ETOH use * Known history of rather significant ETOH use * Q4HR CIWAA protocol * thiamine supplementation daily * folic acid supplementation * Monitor History of COVID-19 * No acute concerns * ? Cardiomyopathy 2/2 Covid Code status: Full Code PCP: Dr. Becerra DVT prophylaxis: SCDs (pharmacological contraindicated due to GI bleed) Disposition: Patient admitted to OB as MedSurg overflow for new onset CHF work- up on telemetry. Length of stay likely 2-3 more days
[2021-01-13] MEDS: Sacubitril/Valsartan 1 EACH Tablet PO SCH (20:03)
[2021-01-14] MEDS: Melatonin 3 MG Tab PO PRN (00:32)
[2021-01-14] MEDS: Metoprolol Succinate 50 MG Tab.ER PO SCH (08:23)
[2021-01-14] MEDS: Pantoprazole 40 MG Tab.CR PO SCH (08:23)
[2021-01-14] MEDS: Sacubitril/Valsartan 1 EACH Tablet PO SCH ×2 (08:24→20:38)
[2021-01-14] MEDS: Folic Acid 1 MG Tab PO SCH (08:24)
[2021-01-14] MEDS: Nicotine 14 MG/24 Hr Patch TRDERM SCH (08:24)
[2021-01-14] MEDS: Thiamine 100 MG Tab PO SCH (08:24)
[2021-01-14] MEDS: Furosemide 20 MG/2 ML VIAL IVPUSH SCH (08:24)
--- NOTE | 2021-01-14 12:56 | PCM.PN ---
- General Info Date of Service: 01/14/21 Admission Dx/Problem (Free Text): Admission Diagnosis/Problem Admission Diagnosis/Problem Congestive heart failure Subjective Update: This is a 55-year-old male who presents to our ED on the evening of 01/10/2021 with shortness of breath and ankle swelling. He also appreciates a 26 pound weight gain over the last few weeks. Per his history he was diagnosed with Covid in early November on the and a CT angiogram of his chest was done showing bilateral COVID-19 pneumonia and a possible clot in the peripheral artery. Patient is feeling much better. He does not have any complaints today. Denies any shortness of breath, palpitations, or chest pain. He would like to go home today. - Review of Systems Systems Review Comment:: General: Reports: No Symptoms HEENT: Reports: No Symptoms Pulmonary: Reports: No Symptoms Cardiovascular: Reports: No Symptoms Gastrointestinal: Reports: No Symptoms Musculoskeletal: Reports: No Symptoms Psychology: No symptoms - Patient Data Vitals - Most Recent: Last Vital Signs Temp 36.4 C 01/14/21 08:28 Pulse 110 H 01/14/21 08:23 Resp 16 01/14/21 08:28 BP 116/85 01/14/21 08:28 Pulse Ox 98 01/14/21 08:28 Weight - Most Recent: 95.345 kg I&O - Last 24 Hours: Intake & Output 01/13/21 01/14/21 01/14/21 22:59 06:59 14:59 Intake Total 950 350 240 Output Total 275 Balance 950 75 240 Lab Results Last 24 Hours: Laboratory Results - last 24 hr 01/14/21 01/14/21 Range/Units 04:50 04:50 WBC 7.74 (4.23-9.07) K/mm3 RBC 3.97 L (4.63-6.08) M/mm3 Hgb 10.1 L (13.7-17.5) gm/dl Hct 34.3 L (40.1-51.0) % MCV 86.4 (79.0-92.2) fl MCH 25.4 L (25.7-32.2) pg MCHC 29.4 L (32.2-35.5) g/dl RDW Std Deviation 52.6 H (35.1-43.9) fL Plt Count 369 H (163-337) K/mm3 MPV 10.0 (9.4-12.3) fl Neut % (Auto) 58.6 (34.0-67.9) % Lymph % (Auto) 25.1 (21.8-53.1) % [place] % (Auto) 13.2 H (5.3-12.2) % Eos % (Auto) 2.3 (0.8-7.0) Baso % (Auto) 0.5 (0.1-1.2) % Neut # (Auto) 4.54 (1.78-5.38) K/mm3 Lymph # (Auto) 1.94 (1.32-3.57) K/mm3 [place] # (Auto) 1.02 H (0.30-0.82) K/mm3 Eos # (Auto) 0.18 (0.04-0.54) K/mm3 Baso # (Auto) 0.04 (0.01-0.08) K/mm3 Sodium 137 (136-145) mEq/L Potassium 4.5 (3.5-5.1) mEq/L Chloride 103 (98-107) mEq/L Carbon Dioxide 26 (21-32) mEq/L Anion Gap 12.5 (5-15) BUN 25 H (7-18) mg/dL Creatinine 0.9 (0.7-1.3) mg/dL Est Cr Clr Drug Dosing 102.34 mL/min Estimated GFR (MDRD) > 60 (>60) mL/min BUN/Creatinine Ratio 27.8 H (14-18) Glucose 119 H (70-99) mg/dL Calcium 8.1 L (8.5-10.1) mg/dL Magnesium 2.0 (1.8-2.4) mg/dL Total Bilirubin 0.6 (0.2-1.0) mg/dL AST 20 (15-37) U/L ALT 34 (16-63) U/L Alkaline Phosphatase 74 (46-116) U/L Total Protein 7.2 (6.4-8.2) g/dl Albumin 2.8 L (3.4-5.0) g/dl Globulin 4.4 gm/dL Albumin/Globulin Ratio 0.6 L (1-2) Med Orders - Current: Current Medications Acetaminophen (Acetaminophen 325 Mg Tab) 650 mg PO Q4H PRN PRN Reason: Pain (Mild 1-3)/fever Docusate Sodium (Docusate Sodium 100 Mg Cap) 100 mg PO Q12H PRN PRN Reason: Constipation Last Admin: 01/12/21 09:20 Dose: 100 mg Documented by: Folic Acid (Folic Acid 1 Mg Tab) 1 mg PO DAILY [facility] Last Admin: 01/14/21 08:24 Dose: 1 mg Documented by: Furosemide (Furosemide 20 Mg/2 Ml Vial) 20 mg IVPUSH DAILY [facility] Last Admin: 01/14/21 08:24 Dose: 20 mg Documented by: Melatonin (Melatonin 3 Mg Tab) 6 mg PO BEDTIME PRN PRN Reason: Insomnia Last Admin: 01/14/21 00:32 Dose: 6 mg Documented by: Metoprolol Succinate (Metoprolol Succinate 50 Mg Tab.Er) 50 mg PO DAILY [facility] Last Admin: 01/14/21 08:23 Dose: 50 mg Documented by: Miscellaneous Information (Remove Nicotine Patch) 1 ea TRDERM DAILY [facility] Last Admin: 01/14/21 10:23 Dose: Not Given Documented by: Nicotine (Nicotine 14 Mg/24 Hr Patch) 14 mg TRDERM DAILY [facility] Last Admin: 01/14/21 08:24 Dose: 14 mg Documented by: Ondansetron HCl (Ondansetron 4 Mg/2 Ml Sdv) 4 mg IV Q6H PRN PRN Reason: Nausea/Vomiting Pantoprazole Sodium (Pantoprazole 40 Mg Tab.Cr) 40 mg PO DAILY [facility] Last Admin: 01/14/21 08:23 Dose: 40 mg Documented by: Sodium Chloride (Sodium Chloride 0.9% 10 Ml Syringe) 10 ml FLUSH ASDIRECTED PRN PRN Reason: Keep Vein Open Last Admin: 01/10/21 17:32 Dose: 10 ml Documented by: Thiamine HCl (Thiamine 100 Mg Tab) 100 mg PO DAILY [facility] Last Admin: 01/14/21 08:24 Dose: 100 mg Documented by: Discontinued Medications Adenosine (Adenosine 6 Mg/2 Ml Sdv) 6 mg IVPUSH NOW ONE Stop: 01/12/21 14:31 Last Admin: 01/12/21 14:17 Dose: 6 mg Documented by: Furosemide (Furosemide 40 Mg/4 Ml Vial) 40 mg IVPUSH NOW ONE Stop: 01/10/21 18:44 Last Admin: 01/10/21 18:57 Dose: 40 mg Documented by: Furosemide (Furosemide 40 Mg/4 Ml Vial) 40 mg IVPUSH ONETIME ONE Stop: 01/11/21 09:01 Last Admin: 01/11/21 09:25 Dose: 40 mg Documented by: Furosemide (Furosemide 40 Mg/4 Ml Vial) 40 mg IVPUSH BIDDIURETIC [facility] Last Admin: 01/12/21 14:58 Dose: Not Given Documented by: Metoprolol Tartrate (Metoprolol Tartrate 5 Mg/5 Ml Sdv) 5 mg IVPUSH ONETIME STA Stop: 01/12/21 14:15 Last Admin: 01/12/21 14:58 Dose: Not Given Documented by: Metoprolol Tartrate (Metoprolol Tartrate 5 Mg/5 Ml Sdv) Confirm Administered Dose 5 mg .ROUTE .STK-MED ONE Stop: 01/12/21 14:17 Last Admin: 01/12/21 14:58 Dose: Not Given Documented by: Metoprolol Tartrate (Metoprolol Tartrate 25 Mg Tab) 12.5 mg PO BID [facility] Last Admin: 01/12/21 20:42 Dose: 12.5 mg Documented by: Metoprolol Tartrate (Metoprolol Tartrate 25 Mg Tab) 12.5 mg PO ONETIME ONE Stop: 01/12/21 15:00 Last Admin: 01/12/21 15:12 Dose: 12.5 mg Documented by: Nicotine (Nicotine 14 Mg/24 Hr Patch) 14 mg TRDERM ONETIME ONE Stop: 01/10/21 19:40 Last Admin: 01/10/21 20:00 Dose: 14 mg Documented by: Pantoprazole Sodium (Pantoprazole 40 Mg Vial) 40 mg IVPUSH ONETIME ONE Stop: 01/10/21 20:44 Last Admin: 01/10/21 21:00 Dose: 40 mg Documented by: Pantoprazole Sodium (Pantoprazole 40 Mg Vial) 40 mg IVPUSH BID [facility] Last Admin: 01/11/21 09:25 Dose: 40 mg Documented by: Pantoprazole Sodium (Pantoprazole 40 Mg Tab.Cr) 40 mg PO BID [facility] Last Admin: 01/12/21 09:20 Dose: 40 mg Documented by: - Exam Physical Findings Comments:: General: Alert, Oriented HEENT: Pupils Equal, Mucous Membr. Moist/[place] Lungs: Normal Respiratory Effort, Crackles (Scattered) Cardiovascular: Regular Rhythm, Tachycardia (Low 100s) GI/Abdominal Exam: Normal Bowel Sounds, Soft, Non-Tender, No Organomegaly, No Distention, No Abnormal Bruit, No Mass Extremities: Normal Capillary Refill, Pedal Edema (1+ pitting edema) Skin: Warm, Dry, Intact Psy/Mental Status: Alert, Normal Affect, Normal Mood - Patient Data Lab Results Last 24 hrs: Laboratory Results - last 24 hr 01/14/21 01/14/21 Range/Units 04:50 04:50 WBC 7.74 (4.23-9.07) K/mm3 RBC 3.97 L (4.63-6.08) M/mm3 Hgb 10.1 L (13.7-17.5) gm/dl Hct 34.3 L (40.1-51.0) % MCV 86.4 (79.0-92.2) fl MCH 25.4 L (25.7-32.2) pg MCHC 29.4 L (32.2-35.5) g/dl RDW Std Deviation 52.6 H (35.1-43.9) fL Plt Count 369 H (163-337) K/mm3 MPV 10.0 (9.4-12.3) fl Neut % (Auto) 58.6 (34.0-67.9) % Lymph % (Auto) 25.1 (21.8-53.1) % [place] % (Auto) 13.2 H (5.3-12.2) % Eos % (Auto) 2.3 (0.8-7.0) Baso % (Auto) 0.5 (0.1-1.2) % Neut # (Auto) 4.54 (1.78-5.38) K/mm3 Lymph # (Auto) 1.94 (1.32-3.57) K/mm3 [place] # (Auto) 1.02 H (0.30-0.82) K/mm3 Eos # (Auto) 0.18 (0.04-0.54) K/mm3 Baso # (Auto) 0.04 (0.01-0.08) K/mm3 Sodium 137 (136-145) mEq/L Potassium 4.5 (3.5-5.1) mEq/L Chloride 103 (98-107) mEq/L Carbon Dioxide 26 (21-32) mEq/L Anion Gap 12.5 (5-15) BUN 25 H (7-18) mg/dL Creatinine 0.9 (0.7-1.3) mg/dL Est Cr Clr Drug Dosing 102.34 mL/min Estimated GFR (MDRD) > 60 (>60) mL/min BUN/Creatinine Ratio 27.8 H (14-18) Glucose 119 H (70-99) mg/dL Calcium 8.1 L (8.5-10.1) mg/dL Magnesium 2.0 (1.8-2.4) mg/dL Total Bilirubin 0.6 (0.2-1.0) mg/dL AST 20 (15-37) U/L ALT 34 (16-63) U/L Alkaline Phosphatase 74 (46-116) U/L Total Protein 7.2 (6.4-8.2) g/dl Albumin 2.8 L (3.4-5.0) g/dl Globulin 4.4 gm/dL Albumin/Globulin Ratio 0.6 L (1-2) Result Diagrams: 01/14/21 04:50 01/14/21 04:50 Sepsis Event Note - Evaluation Sepsis Screening Result: No Definite Risk - Focused Exam Vital Signs: Vital Signs Temp Pulse Resp BP BP Pulse Ox 01/14/21 08:28 36.4 C 16 116/85 98 01/14/21 08:23 110 H 116/85 01/14/21 04:00 36.4 C 14 119/80 94 L - Problem List Review Problem List Initiated/Reviewed/Updated: Yes - My Orders Last 24 Hours: My Active Orders 01/14/21 12:46 EKG Documentation Completion [RC] ROUTINE Echo 2D wo Cont [US] Routine 01/15/21 05:00 PRO B-TYPE NATRIUR PEPT,BNPPRO [CHEM] Routine - Assessment Assessment:: Assessment - 01/11/2021 (admitted late 01/10/2021) * 55-year-old male who presents to our ED on the evening of 01/10/2021 with shortness of breath and ankle swelling * History of anxiety. He is a daily 1.5 pack/day smoker * Appreciates a 26 pound weight gain over the last few weeks * Diagnosed with Covid in early November on the and a CT angiogram of his chest was done showing bilateral COVID-19 pneumonia and a possible clot in the peripheral artery * Started on Xarelto * Has since noticed that he was getting more and more shortness of breath with exertion * Reports orthopnea but denies any chest pain. No fever but had some chills. Denies any abdominal pain, nausea, vomiting. * 12-lead EKG is obtained showing a sinus tachycardia 116 bpm. There are Q waves noted in the inferior leads. * Labs are obtained: * WBC of 5.68. * Hemoglobin 8.4. He is normocytic. * Platelet 310,000. * Neutrophils are normal at 66.8%. * Sodium 138. * Potassium 4.5. * Chloride 105. * Carbon dioxide 27. * Anion gap is 10.5. * BUN is 19. Creatinine 0.9. GFR greater than 60. * Glucose is 103. * Total bilirubin 0.6. * AST is 24, ALT 36, alkaline phosphatase 83. * Troponin is less than 0.017. * proBNP is 3799. * Protein is 6.7. * Albumin 2.7. * Chest x-ray is obtained showing mildly increased lung markings which appear stable and old rib fractures but nothing acute. * He is given 40 mg IV push Lasix and has 800 mL of output. * Of note there is a new systolic murmur noted. * Subsequently admitted to the medical floor for management of his suspected new onset CHF. 01/12/2021 55-year-old admitted for new onset CHF. Unfortunately his echocardiogram reviewed a very low EF with biatrial dilation, and rather significant mitral and tricuspid valve regurgitation. We will continue diuresis with a goal weight between 210 and 215. Per recommendations from Dr. Sanchez, cardiology will start low-dose Entresto and metoprolol thereafter. He will need cardiology and primary care follow-up. This morning he weighed 219 pounds and 4 ounces. He remains tachycardic at 113 bpm. Blood pressure is 134/86. Labs show a WBC of 5.95. Hemoglobin is up to 9.1 with hematocrit of 30.1. Occult stool is still pending. Platelet 324,000. Sodium is 140. Potassium is 3.9. Chloride 104. Carbon oxide 26. Anion gap 13.9. BUN is 18. Creatinine 1.0. GFR greater than 60. Protein is 6.9 and albumin 2.6. He remains on a 1.5 L fluid restriction and sodium restriction. CIWA score has been 0-1 he remains on thiamine and folic acid supplementation. He has had just over 4L output. Likely discharge in 2 to 3 days pending continued improvement. 01/13/2021 55-year-old male with new onset CHF presumably from COVID-19 infection last m [facility]. Patient had episode yesterday of SVT requiring 6 mg of adenosine. Patient was started then on metoprolol tartrate with good results. This morning he was started on metoprolol succinate 50 mg daily. He has had a significant weight loss of 32 pounds. Patient blood pressure has tolerated the metoprolol with systolic blood pressures in the 120s 130s. Plan is to start him on Entresto also. Patient's heart rate has continued to be in the low 100s after the metoprolol succinate this morning. This will need to be followed and possibly titrated up. CIWA protocol was started secondary to his history of moderate drinking. He was also started on thiamine and folic acid supplementation. Hemoglobin has stabilized and is at 9.3. Albumin continues to be low at 2.7. Electrolytes are stable and currently in normal range. 01/14/2021 55-year-old male with new onset CHF presumably from COVID-19 infection last month. Patient had episode yesterday of SVT requiring 6 mg of adenosine. Patient was started then on metoprolol tartrate with good results. This morning he was started on metoprolol succinate 50 mg daily. He has had a significant weight loss of 32 pounds. Patient blood pressure has tolerated the metoprolol with systolic blood pressures in the 120s 130s. Plan is to start him on Entresto also. Patient's heart rate has continued to be in the low 100s after the metoprolol succinate this morning. This will need to be followed and possibly titrated up. CIWA protocol was started secondary to his history of moderate drinking. He was also started on thiamine and folic acid supplementation. Hemoglobin has stabilized and is at 10.1. Albumin continues to be low at 2.8. Electrolytes are stable and currently in normal range. Patient is feeling much better. He does not have any complaints today. Denies any shortness of breath, palpitations, or chest pain. He would like to go home today. But I would like to continue to observe him in the hospital His EF 20%. I explained his disease and risk to patient and family (Neema) this morning and discussed the treatment options. Pt does not want to be transferred to higher level hospital where there is a icicle machine operator available. Patient right now is not on anticoagulation discussed with his PCP Dr. Becerra and family (Neema) who agreed not to initiate anticoagulation for his PE until he sees GI. Dr. Dr. Becerra agreed to discharge him tomorrow. - Plan Plan:: New onset of congestive heart failure Tachycardia Murmur Pedal edema * Etiologies including Covid cardiomyopathy, alcoholic cardiomyopathy, ischemia cardiomyopathy, etc * CXR on 01/10 - no cardiomegaly * Troponin was negative * Lasix 20 mg IV this morning. Continue to monitor and adjust appropriately. * Telemetry * Strict I&O * Daily weights (Goal dry weight of 210-215) at goal weight * 1.5L fluid restriction * Heart healthy diet (low sodium) * [facility] consultation * Echocardiogram ejection fraction less than 20% * Cardiology follow-up * Start Entresto 49 mg / 51 mg p.o. twice daily * No need for PT/OT currently * Monitor vital signs * Monitor electrolytes * Daily labs * Patient refused to be transferred to higher level hospital Anemia Lower GI bleed Subsegmental pulmonary embolism found on December 02 * Daily labs * Daily PO Protonix * Hold home Xarelto * SCDs * Consider surgical consult although poor candidate due to new onset CHF * Discussed to me PCP Dr. Becerra and family (Neema) who agreed not to initiate anticoagulation until patient sees GI Tobacco use disorder * Daily nicotine patch * Cessation counseling * Offer patches on discharge Alcohol use * Reports social ETOH use * Known history of rather significant ETOH use * Q4HR CIWAA protocol * thiamine supplementation daily * folic acid supplementation * Monitor History of COVID-19 * No acute concerns * ? Cardiomyopathy 2/2 Covid Code status: Full Code PCP: Dr. Becerra DVT prophylaxis: SCDs (pharmacological contraindicated due to GI bleed) Disposition: Patient admitted to OB as MedSurg overflow for new onset CHF work- up on telemetry. Length of stay likely 2-3 more days
[2021-01-15] MEDS: Melatonin 3 MG Tab PO PRN (00:15)
[2021-01-15] MEDS: Furosemide 20 MG/2 ML VIAL IVPUSH SCH (08:11)
[2021-01-15] MEDS: Metoprolol Succinate 50 MG Tab.ER PO SCH (08:11)
[2021-01-15] MEDS: Thiamine 100 MG Tab PO SCH (08:11)
[2021-01-15] MEDS: Sacubitril/Valsartan 1 EACH Tablet PO SCH (08:11)
[2021-01-15] MEDS: Nicotine 14 MG/24 Hr Patch TRDERM SCH (08:11)
[2021-01-15] MEDS: Pantoprazole 40 MG Tab.CR PO SCH (08:11)
[2021-01-15] MEDS: Folic Acid 1 MG Tab PO SCH (08:11)
--- NOTE | 2021-01-15 10:49 | PCM.DCSUM1 ---
Discharge Summary - Hospital Course HPI Initial Comments: This is a 55-year-old male who presents to our ED on the evening of 01/10/2021 with shortness of breath and ankle swelling. He also appreciates a 26 pound weight gain over the last few weeks. Per his history he was diagnosed with Covid in early November on the and a CT angiogram of his chest was done showing bilateral COVID-19 pneumonia and a possible clot in the peripheral artery. He was started on Xarelto. Shortly thereafter he noticed that he was getting more and more shortness of breath with exertion. He reports orthopnea but denies any chest pain. No fever but had some chills. Denies any abdominal pain, nausea, vomiting. In the ED twelve-lead EKG is obtained showing a sinus tachycardia 116 bpm. There are Q waves noted in the inferior leads. Temp is 97.1 Fahrenheit. Pulse 122. Respirations 26. Blood pressure 161/96. Pulse ox is 97% on room air. Labs are obtained showing a WBC of 5.68. Hemoglobin 8.4. He is normocytic. Platelet 310,000. Neutrophils are normal at 66.8%. Sodium 138. Potassium 4.5. Chloride 105. Carbon dioxide 27. Anion gap is 10.5. BUN is 19. Creatinine 0.9. GFR greater than 60. Glucose is 103. Total bilirubin 0.6. AST is 24, ALT 36, alkaline phosphatase 83. Troponin is less than 0.017. proBNP is 3799. Protein is 6.7. Albumin 2.7. Chest x-ray is obtained showing mildly increased lung markings which appear stable and old rib fractures but nothing acute. He is given 40 mg IV push Lasix and has 800 mL of output. Of note there is a new systolic murmur noted. He carries a history of anxiety. He is a daily 1.5 pack/day smoker. He is a full code. His PCP is Dr. Becerra. He subsequently admitted to the medical floor for management of his suspected new onset CHF. Addendum entered and electronically signed by Abdoulaye Bush PA-C 01/11/21 14:36: Contacted on-call construction project mgr Dr. Sanchez with [facility] in [place] to discuss patient and recommendations. Labs and patient status discussed. He recommends continue diuresis of patient and once euvolemic start Entresto twice daily and metoprolol succinate 12.5 daily. He states in follow-up patient can have an SGLT2 inhibitor and spironolactone but this is something that can be prescribed by the primary care provider. He does not see any reason why the patient currently needs to be transferred and states patient will ultimately need cardiac catheterization and cardiology follow-up. He states to contact cardiology if patient decompensates, but currently he feels the patient is quite stable. We will continue to monitor and follow this plan. Addendum entered and electronically signed by Abdoulaye Bush PA-C 01/11/21 12:10: Echocardiogram returned showing 1. Left ventricular ejection fraction, by visual estimation, is less than 20%. 2. Global and severely decreased left ventricular systolic function. 3. Elevated mean left atrial pressure. 4. Mild septal left ventricular hypertrophy. 5. Left ventricular internal cavity size is mild to moderately increased. 6. Low normal right ventricular systolic function. 7. Severely dilated left atrium. 8. Severely dilated right atrium. 9. Mild aortic valve regurgitation. 10. At least moderate mitral valve regurgitation with multiple eccentric jets present. 11. Moderate tricuspid valve regurgitation. 12. Mild dilation of the aortic root. 13. The right ventricular systolic pressure is severely elevated at 56.7 mmHg. Given these results will attempt to contact Dr. Carlton, construction project mgr who read echocardiogram for advice and to consider possible transfer to [place] for cardiology care. Diagnosis: Stroke: No - Discharge Data Discharge Date: 01/15/21 (Admit date: 01/10/2021) Discharge Disposition: Home, Self-Care 01 Condition: Good - Referral to Home Health Primary Care Physician: Maikel Becerra MD - Discharge Diagnosis/Problem(s) (1) Tachycardia SNOMED Code(s): 0035501 ICD Code: R00.0 - TACHYCARDIA, UNSPECIFIED Status: Acute Priority: Medium Current Visit: Yes (2) Lower GI bleed SNOMED Code(s): 00895620 ICD Code: K92.2 - GASTROINTESTINAL HEMORRHAGE, UNSPECIFIED Status: Resolved Priority: Medium Current Visit: Yes (3) Murmur SNOMED Code(s): 28081079 ICD Code: R01.1 - CARDIAC MURMUR, UNSPECIFIED Status: Acute Priority: High Current Visit: Yes (4) Pedal edema SNOMED Code(s): 639199413 ICD Code: R60.0 - LOCALIZED EDEMA Status: Resolved Priority: High Current Visit: Yes (5) Tobacco use disorder SNOMED Code(s): 314487445 ICD Code: F17.200 - NICOTINE DEPENDENCE, UNSPECIFIED, UNCOMPLICATED Status: Chronic Priority: Medium Current Visit: Yes (6) Alcohol use SNOMED Code(s): 619651 ICD Code: Z72.89 - OTHER PROBLEMS RELATED TO LIFESTYLE Status: Chronic Priority: Medium Current Visit: Yes (7) History of COVID-19 SNOMED Code(s): 063705051670129826, 247431757069088235 ICD Code: Z86.16 - PERSONAL HISTORY OF COVID-19 Status: Chronic Priority: Medium Current Visit: Yes (8) Anemia SNOMED Code(s): 465237863 ICD Code: D64.9 - ANEMIA, UNSPECIFIED Status: Acute Priority: High Current Visit: Yes Qualifiers: Anemia type: other cause Other causes of anemia: other cause, not classified Qualified Code(s): D64.89 - Other specified anemias (9) New onset of congestive heart failure SNOMED Code(s): 95728727 ICD Code: I50.9 - HEART FAILURE, UNSPECIFIED Status: Acute Priority: High Current Visit: Yes (10) Supraventricular tachycardia SNOMED Code(s): 7448514 ICD Code: I47.1 - SUPRAVENTRICULAR TACHYCARDIA Status: Resolved Priority: High Current Visit: Yes - Patient Summary/Data Consults: Consultations 01/11/21 10:33 Consult to [facility] Engineer [CONS] Routine Labs Pending at D/C: None Recommended Follow-up Testing/Procedures: Follow-up with primary care provider within 5 to 7 days of discharge, sooner if needed. * Recommend repeat echocardiogram at provider discretion to recheck ejection fraction. * Patient started on 2 g sodium restriction and 2 L fluid restriction while here. Please follow-up on this. * Patient discharged on 50 mg of metoprolol succinate, Entresto, and 20 mg daily Lasix p.o. * Repeat CBC ordered for 01/18/2021 with results to PCP due to anemia and lower GI bleed. * Patient's Xarelto was held and patient will be discharged on 30 mg Lovenox daily at PCP recommendation. Please follow-up on this. * Recommend repeat CBC, CMP, and magnesium in follow-up * Patient prescribed nicotine patches at discharge. He will likely need longer prescription. Please follow-up on this. * Patient instructed to weigh himself daily and record this in a journal. Please review this journal. * Patient instructed to take his blood pressure twice a day and recorded in a journal. Please check this journal. Recommend cardiology follow-up at next available. Recommend outpatient GI follow-up regarding GI bleed and need for colonoscopy. Hospital Course: This is a 55-year-old male who presents to ED on the evening of 01/10/2021 with shortness of breath and ankle swelling. He does have a history of anxiety and is a pack and a half a day smoker as well. There is a remote history of alcohol use. Per the patient he is noted significant swelling and a 26 pound weight gain over the last few weeks. He had Covid in early November and there was a potential PE noted. He was started on Xarelto and has been on it since then. Twelve-lead EKG shows a sinus tachycardia 116 bpm with Q waves noted in the inferior leads. Hemoglobin is noted to be 8.4 and he is normocytic with a platelet count of 310,000. proBNP is 3799. Albumin is 2.7. Chest x-ray shows increased lung markings which appear stable and an old rib fracture but nothing acute. He is given 40 mg of IV push Lasix with a noted 800 mL output. He does have a new systolic murmur noted as well. He is admitted to the OB unit as a MedSurg overflow for management and further testing of his suspected new onset CHF. Echocardiogram returned showing 1. Left ventricular ejection fraction, by visual estimation, is less than 20%. 2. Global and severely decreased left ventricular systolic function. 3. Elevated mean left atrial pressure. 4. Mild septal left ventricular hypertrophy. 5. Left ventricular internal cavity size is mild to moderately increased. 6. Low normal right ventricular systolic function. 7. Severely dilated left atrium. 8. Severely dilated right atrium. 9. Mild aortic valve regurgitation. 10. At least moderate mitral valve regurgitation with multiple eccentric jets present. 11. Moderate tricuspid valve regurgitation. 12. Mild dilation of the aortic root. 13. The right ventricular systolic pressure is severely elevated at 56.[address] Sanchez, construction project mgr with [facility] in [place] is contacted to discuss echocardiogram results.. He recommends continued diuresis of the patient and once the patient is dry to start him on Entresto and low-dose metoprolol. He recommends an SGLT2 inhibitor and spironolactone which can be started by the primary care provider later on in follow-up. We discussed possible need for transfer and he does not feel the patient needs transfer at this time. He states he will be doing the same things we will with diuresis at the patient appears quite stable. Patient continues on 40 mg twice daily Lasix with good urine output. Given patient's history of alcohol use CIWA protocol is implemented and patient is placed on thiamine and folic acid supplementation. Throughout his stay CIWA score remains 0-1. Unfortunately on 01/13/2021 patient is noted to have an episode of SVT with a heart rate in the 160s which was observed on telemetry. Twelve-lead EKG is obtained showing SVT with ST depression noted in the inferior leads and V4 through V6. Likely rate related but cannot rule out ischemia. Attempted vagal maneuvers with no success. Patient is given 6 mg IV push adenosine which does convert his rhythm to a sinus tachycardia in the low 100s to one teens. Patient is started on metoprolol tartrate 12.5 mg twice daily and this is increased to 50 mg metoprolol succinate prior to discharge. Patient is also started on Entresto and tolerates this well. Blood pressure remained stable. Patient's primary care provider did stop by and see him multiple times while in the hospital. Patient's [id number] was also heavily involved in his care and relaying information to the rest the family. During admission patient was also noted to be anemic and hemoglobin did drop to 7.8. Patient's home Xarelto was discontinued and patient was started on Protonix. After discussion with the patient he did report that he was having some stool with blood streaking for quite a while. Suspect lower GI bleed combined with CHF for the cause of his anemia. Patient was placed on SCDs and hemoglobin did respond with diuresis, with his last reading being 10.8. Discussed plan with Dr. Becerra, patient's PCP, who would like patient started on low dose 30 mg Lovenox at discharge. He will follow up with patient in the clinic and restart Xarelto as noted. Of note reviewed prior CTA and PE was possible but not definitive per radiologist. We will recheck patient's CBC on 01/18/2021 with results to patient's primary care provider. Occult stool was positive for blood. Dr. Hollis, general surgeon, was contacted to discuss GI bleed. As expected he reports patient is very high risk given his low ejection fraction and he would not be a good colonoscopy candidate at this time. Risks currently outweigh benefits. While patient will need a colonoscopy we would need to see a increase in ejection fraction for patient to be cleared locally. He may also benefit from a colonoscopy in [place] with cardiology available. We will place a GI consult and patient's primary care provider will follow up with this. Patient will also need to see cardiology as soon as possible after discharge. Patient will be discharged on 30 mg Lovenox, Entresto, 20 mg daily Lasix, and 50 mg metoprolol succinate daily. Given his history of alcohol use we will also prescribe 4 more days of folic acid supplementation and continued thiamine supplementation, both of which she was receiving while here. Patient is a pack and a half a day smoker and we discussed smoking cessation and the importance of avoiding alcohol and nicotine. Will be prescribed nicotine patches at discharge. He was given practical resources and contact information for [place] quits in the [facility] tobacco cessation program. PCP will need to follow-up with this. He did see our dietitian and we are recommending 2 g sodium and 2 L fluid restriction at discharge. Instructed patient to check his blood pressure twice daily and record this in a journal, bring this with to all medical appointments. Patient was instructed to check his weight daily and record this in a journal, bring this with to all medical appointments. Patient was instructed to contact his primary care provider if he notes a 3 pound weight gain in 1 day or 5 pound weight gain in 1 week. Patient was instructed to contact 911 immediately if he notices a fluttering or fast heart rate, similar to what he felt well in the hospital with his episode of SVT. He was instructed to contact his primary care provider should symptoms return or worsen. Discharged home today. Patient had a 36 pound weight loss. Dry weight today was 207. - Patient Instructions Diet: Heart Healthy Diet, Low Sodium, No Alcoholic Beverages, Fluid Restriction Fluid Restriction: 2000 mL Activity: As Tolerated Driving: Do Not Drive Showering/Bathing: May Shower Notify Provider of: Fever, Increased Pain, Nausea and/or Vomiting Other/Special Instructions: Follow-up with primary care provider within 5-7 days of discharge, sooner if needed. Repeat CBC (blood draw) on 01/18/2021 ordered with results to Dr. Becerra. Follow-up with cardiology as scheduled/directed. Follow-up with GI regarding colonoscopy/GI bleeding. Weigh yourself daily and record it in a journal. Bring this journal with to all medical appointments. Remain home from work until cleared by your primary care provider, Dr. Becerra. Contact your primary care provider if you notice a 3lb or greater weight gain in one day or a 5lb or greater weight gain in one week. You were prescribed nicotine patches on discharge. It is very important that you stop smoking as it is negatively affecting your heart. There are resources available such as [employer] and the [facility] tobacco cessation program who can provide counseling and free patches. Follow-up with your primary care provider regarding this as you will need continued patches. You need to stop drinking alcohol. This can negatively affect your heart as well. Check your blood pressure twice a day and record this in a journal. Bring this journal with to all medical appointments. Because of your low hemoglobin and GI bleed we will stop your Xarelto. You will be started on Lovenox, which is a once a day injection that will help thin your blood. This was recommended by Dr. Becerra and he will follow up with this in the future. You need to avoid sodium. Shoot for less than 2 g/day. You also need to watch your fluid intake and try to take less than 2 L/day. As we discussed any excess fluid will settle in your legs and lungs, worsening your heart failure symptoms. You were started on several new medications including metoprolol succinate, which is a once a day medication to help control your heart rate. You were also started on Entresto which is a combination medication to help with your heart failure. If you notice your heart rate becomes very high like it was in the hospital, or you notice fluttering of your heart you should contact an ambulance right away. Should symptoms return or worsen contact primary care provider or return to the emergency room. - Discharge Plan *PRESCRIPTION DRUG MONITORING PROGRAM REVIEWED*: No *COPY OF PRESCRIPTION DRUG MONITORING REPORT IN PATIENT WILLIAM: No Prescriptions/Med Rec: Sacubitril/Valsartan [Entresto 49 mg-51 mg Tablet] 1 each PO BID #40 tablet Folic Acid 1 mg PO DAILY #10 tablet Nicotine [Habitrol] 14 mg TRDERM DAILY #2 box Furosemide [Lasix] 20 mg PO DAILY #20 tab Enoxaparin Sodium [Lovenox] 30 mg SQ DAILY #20 ml Metoprolol Succinate 50 mg PO DAILY #20 tab.er.24h Thiamine [Vitamin B-1] 100 mg PO DAILY #20 tablet Tobacco Cessation Medication: Prescription Given Home Medications: Home Meds Enoxaparin Sodium [Lovenox] 30 mg SQ DAILY #20 ml 01/15/21 [Rx] Folic Acid 1 mg PO DAILY #10 tablet 01/15/21 [Rx] Furosemide [Lasix] 20 mg PO DAILY #20 tab 01/15/21 [Rx] Metoprolol Succinate 50 mg PO DAILY #20 tab.er.24h 01/15/21 [Rx] Nicotine [Habitrol] 14 mg TRDERM DAILY #2 box 01/15/21 [Rx] Sacubitril/Valsartan [Entresto 49 mg-51 mg Tablet] 1 each PO BID #40 tablet 01/15/21 [Rx] Thiamine [Vitamin B-1] 100 mg PO DAILY #20 tablet 01/15/21 [Rx] Oxygen Therapy Mode: Room Air Patient Handouts: Heart Failure, Self Care, [id number], Heart Failure, Diagnosis, [id number], Heart Failure Exacerbation, Heart Failure Medicines, Steps to Quit Smoking Forms: ED Department Discharge Referrals: Anibal Sanchez MD [Ordering Only Provider] - (Information has been faxed to Dr. Sanchez and bilingual medical receptionist will be working on making an appt. and their office will call you with appt. date and time.) Maikel Alexander MD [Primary Care Provider] - - Discharge Summary/Plan Comment DC Time >30 min.: Yes Total # of Minutes for Discharge Time: 45 - General Info Date of Service: 01/15/21 Admission Dx/Problem (Free Text: Admission Diagnosis/Problem Admission Diagnosis/Problem Congestive heart failure Functional Status: Reports: Pain Controlled, Tolerating Diet, Ambulating, Urinating. Denies: New Symptoms - Review of Systems General: Reports: No Symptoms. Denies: Fever, Weakness, Fatigue, Malaise, Chills HEENT: Reports: No Symptoms. Denies: Headaches, Sore Throat Pulmonary: Reports: No Symptoms. Denies: Shortness of Breath, Pleuritic Chest Pain, Cough, Sputum, Wheezing Cardiovascular: Reports: No Symptoms. Denies: Chest Pain, Palpitations, Dyspnea on Exertion, Edema, Lightheadedness Gastrointestinal: Reports: No Symptoms. Denies: Abdominal Pain, Constipation, Diarrhea, Nausea, Vomiting Genitourinary: Reports: No Symptoms. Denies: Pain Musculoskeletal: Reports: No Symptoms Skin: Reports: No Symptoms. Denies: Cyanosis Neurological: Reports: No Symptoms. Denies: Confusion, Dizziness, Headache, Numbness, Pre-Existing Deficit, Seizure, Syncope, Tingling, Difficulty Walking, Weakness, Gait Disturbance Psychiatric: Reports: No Symptoms - Patient Data Vitals - Most Recent: Last Vital Signs Temp 97 F 01/15/21 08:17 Pulse 110 H 01/15/21 08:11 Resp 18 01/15/21 08:17 BP 117/85 01/15/21 08:17 Pulse Ox 95 01/15/21 08:17 Weight - Most Recent: 207 lb 12.8 oz I&O - Last 24 hours: Intake & Output 01/14/21 01/15/21 01/15/21 22:59 06:59 14:59 Intake Total 760 350 Balance 760 350 Lab Results - Last 24 hrs: Laboratory Results - last 24 hr 01/15/21 01/15/21 01/15/21 Range/Units 05:47 05:47 05:47 WBC 7.60 (4.23-9.07) K/mm3 RBC 4.21 L (4.63-6.08) M/mm3 Hgb 10.8 L (13.7-17.5) gm/dl Hct 36.1 L (40.1-51.0) % MCV 85.7 (79.0-92.2) fl MCH 25.7 (25.7-32.2) pg MCHC 29.9 L (32.2-35.5) g/dl RDW Std Deviation 50.3 H (35.1-43.9) fL Plt Count 392 H (163-337) K/mm3 MPV 10.2 (9.4-12.3) fl Neut % (Auto) 64.8 (34.0-67.9) % Lymph % (Auto) 21.1 L (21.8-53.1) % Craig % (Auto) 11.1 (5.3-12.2) % Eos % (Auto) 2.0 (0.8-7.0) Baso % (Auto) 0.7 (0.1-1.2) % Neut # (Auto) 4.94 (1.78-5.38) K/mm3 Lymph # (Auto) 1.60 (1.32-3.57) K/mm3 Craig # (Auto) 0.84 H (0.30-0.82) K/mm3 Eos # (Auto) 0.15 (0.04-0.54) K/mm3 Baso # (Auto) 0.05 (0.01-0.08) K/mm3 Sodium 138 (136-145) mEq/L Potassium 4.2 (3.5-5.1) mEq/L Chloride 105 (98-107) mEq/L Carbon Dioxide 23 (21-32) mEq/L Anion Gap 14.2 (5-15) BUN 30 H (7-18) mg/dL Creatinine 1.0 (0.7-1.3) mg/dL Est Cr Clr Drug Dosing 92.11 mL/min Estimated GFR (MDRD) > 60 (>60) mL/min BUN/Creatinine Ratio 30.0 H (14-18) Glucose 123 H (70-99) mg/dL Calcium 8.2 L (8.5-10.1) mg/dL Magnesium 1.9 (1.8-2.4) mg/dL Total Bilirubin 0.5 (0.2-1.0) mg/dL AST 24 (15-37) U/L ALT 37 (16-63) U/L Alkaline Phosphatase 80 (46-116) U/L NT-Pro-B Natriuret Pep 1382 H (0-125) pg/mL Total Protein 7.3 (6.4-8.2) g/dl Albumin 2.8 L (3.4-5.0) g/dl Globulin 4.5 gm/dL Albumin/Globulin Ratio 0.6 L (1-2) Med Orders - Current: Current Medications Acetaminophen (Acetaminophen 325 Mg Tab) 650 mg PO Q4H PRN PRN Reason: Pain (Mild 1-3)/fever Docusate Sodium (Docusate Sodium 100 Mg Cap) 100 mg PO Q12H PRN PRN Reason: Constipation Last Admin: 01/12/21 09:20 Dose: 100 mg Documented by: Folic Acid (Folic Acid 1 Mg Tab) 1 mg PO DAILY REPLACED BY [facility] Last Admin: 01/15/21 08:11 Dose: 1 mg Documented by: Furosemide (Furosemide 20 Mg/2 Ml Vial) 20 mg IVPUSH DAILY REPLACED BY [facility] Last Admin: 01/15/21 08:11 Dose: 20 mg Documented by: Melatonin (Melatonin 3 Mg Tab) 6 mg PO BEDTIME PRN PRN Reason: Insomnia Last Admin: 01/15/21 00:15 Dose: 6 mg Documented by: Metoprolol Succinate (Metoprolol Succinate 50 Mg Tab.Er) 50 mg PO DAILY REPLACED BY [facility] Last Admin: 01/15/21 08:11 Dose: 50 mg Documented by: Miscellaneous Information (Remove Nicotine Patch) 1 ea TRDERM DAILY REPLACED BY [facility] Last Admin: 01/15/21 08:12 Dose: 1 ea Documented by: Nicotine (Nicotine 14 Mg/24 Hr Patch) 14 mg TRDERM DAILY REPLACED BY [facility] Last Admin: 01/15/21 08:11 Dose: 14 mg Documented by: Ondansetron HCl (Ondansetron 4 Mg/2 Ml Sdv) 4 mg IV Q6H PRN PRN Reason: Nausea/Vomiting Pantoprazole Sodium (Pantoprazole 40 Mg Tab.Cr) 40 mg PO DAILY REPLACED BY [facility] Last Admin: 01/15/21 08:11 Dose: 40 mg Documented by: Sodium Chloride (Sodium Chloride 0.9% 10 Ml Syringe) 10 ml FLUSH ASDIRECTED PRN PRN Reason: Keep Vein Open Last Admin: 01/10/21 17:32 Dose: 10 ml Documented by: Thiamine HCl (Thiamine 100 Mg Tab) 100 mg PO DAILY REPLACED BY [facility] Last Admin: 01/15/21 08:11 Dose: 100 mg Documented by: Discontinued Medications Adenosine (Adenosine 6 Mg/2 Ml Sdv) 6 mg IVPUSH NOW ONE Stop: 01/12/21 14:31 Last Admin: 01/12/21 14:17 Dose: 6 mg Documented by: Furosemide (Furosemide 40 Mg/4 Ml Vial) 40 mg IVPUSH NOW ONE Stop: 01/10/21 18:44 Last Admin: 01/10/21 18:57 Dose: 40 mg Documented by: Furosemide (Furosemide 40 Mg/4 Ml Vial) 40 mg IVPUSH ONETIME ONE Stop: 01/11/21 09:01 Last Admin: 01/11/21 09:25 Dose: 40 mg Documented by: Furosemide (Furosemide 40 Mg/4 Ml Vial) 40 mg IVPUSH BIDDIURETIC REPLACED BY [facility] Last Admin: 01/12/21 14:58 Dose: Not Given Documented by: Metoprolol Tartrate (Metoprolol Tartrate 5 Mg/5 Ml Sdv) 5 mg IVPUSH ONETIME STA Stop: 01/12/21 14:15 Last Admin: 01/12/21 14:58 Dose: Not Given Documented by: Metoprolol Tartrate (Metoprolol Tartrate 5 Mg/5 Ml Sdv) Confirm Administered Dose 5 mg .ROUTE .STK-MED ONE Stop: 01/12/21 14:17 Last Admin: 01/12/21 14:58 Dose: Not Given Documented by: Metoprolol Tartrate (Metoprolol Tartrate 25 Mg Tab) 12.5 mg PO BID REPLACED BY [facility] Last Admin: 01/12/21 20:42 Dose: 12.5 mg Documented by: Metoprolol Tartrate (Metoprolol Tartrate 25 Mg Tab) 12.5 mg PO ONETIME ONE Stop: 01/12/21 15:00 Last Admin: 01/12/21 15:12 Dose: 12.5 mg Documented by: Nicotine (Nicotine 14 Mg/24 Hr Patch) 14 mg TRDERM ONETIME ONE Stop: 01/10/21 19:40 Last Admin: 01/10/21 20:00 Dose: 14 mg Documented by: Pantoprazole Sodium (Pantoprazole 40 Mg Vial) 40 mg IVPUSH ONETIME ONE Stop: 01/10/21 20:44 Last Admin: 01/10/21 21:00 Dose: 40 mg Documented by: Pantoprazole Sodium (Pantoprazole 40 Mg Vial) 40 mg IVPUSH BID REPLACED BY [facility] Last Admin: 01/11/21 09:25 Dose: 40 mg Documented by: Pantoprazole Sodium (Pantoprazole 40 Mg Tab.Cr) 40 mg PO BID REPLACED BY [facility] Last Admin: 01/12/21 09:20 Dose: 40 mg Documented by: - Exam Quality Assessment: Reports: DVT Prophylaxis. Denies: Supplemental Oxygen, Urine Catheter General: Reports: Alert, Oriented, Cooperative, No Acute Distress HEENT: Reports: Pupils Equal, Pupils Reactive, Mucous Membr. Moist/[place] Neck: Reports: Supple, Trachea Midline Lungs: Reports: Clear to Auscultation, Normal Respiratory Effort Cardiovascular: Reports: Regular Rhythm, Tachycardia, Murmurs (systolic ) GI/Abdominal Exam: Normal Bowel Sounds, Soft, Non-Tender, No Distention (Male) Exam: Deferred Rectal (Males) Exam: Deferred Back Exam: Reports: Normal Inspection, Full Range of Motion Extremities: Normal Inspection, Normal Range of Motion, Non-Tender, Normal Capillary Refill, Pedal Edema (trace ) Skin: Reports: Warm, Dry, Intact Neurological: Reports: No New Focal Deficit Psy/Mental Status: Reports: Alert, Normal Affect, Normal Mood
[2021-01-15] MEDS ORDERED: Enoxaparin 30 MG/0.3 ML Syringe SUBCUT ONE (10:57)
== END 2021-01-15 13:40 | disposition home or self-care (01) | DRG 292 ==
LOC: JD.ED 16:56 → JD.OB 22:05 → JD.ICU 01-12 14:46
PROVIDERS: ADMIT Family Medicine; ATTEND Family Medicine
DX: I50.41 Acute combined systolic (congestive) and diastolic (congestive) heart failure (principal); K92.2 Gastrointestinal hemorrhage, unspecified; I47.1 Supraventricular tachycardia; I42.6 Alcoholic cardiomyopathy; F17.210 Nicotine dependence, cigarettes, uncomplicated; D64.89 Other specified anemias; Z86.16 Personal history of COVID-19; I25.5 Ischemic cardiomyopathy; I08.1 Rheumatic disorders of both mitral and tricuspid valves; Z86.711 Personal history of pulmonary embolism; Z79.01 Long term (current) use of anticoagulants; Z98.890 Other specified postprocedural states
CPT/HCPCS: 36415; 71045; 71045-26; 80053; 82272; 83735; 83880; 84484; 85014; 85018; 85025; 93005; 93010; 93306; 96374; 96375; 99285; 99285-25; A9270-GY; C9113; J0153; J1650; J1940; J3490

== ENCOUNTER 2021-02-12 11:53 | Emergency (ER) | payer OTHER ==
[2021-02-12] MEDS ORDERED: Lidocaine 1% 10 ML MDV INJECT ONE (13:45)
[2021-02-12] MEDS ORDERED: Diphtheria,Pertussis(Acell),Tetanus Vaccine 0.5 ML Syringe IM ONE (13:46)
--- NOTE | 2021-02-12 13:50 | EDM.PDOC ---
ED HPI GENERAL MEDICAL PROBLEM - General Chief Complaint: Laceration Stated Complaint: L HAND LAC Time Seen by Provider: 02/12/21 13:38 Source of Information: Reports: Patient, RN Notes Reviewed History Limitations: Reports: No Limitations - History of Present Illness INITIAL COMMENTS - FREE TEXT/NARRATIVE: Patient is a 55-year-old male who presents to the ER for evaluation of his left hand laceration. Laceration is linear, and is roughly 4 cm in length, and fairly deep. Patient was trying to open a box with a utility knife, and ended up lacerating the webbing space between the left thumb and left index finger, on the dorsal aspect of the hand. He has all range of motion and has not had any decrease in mobility, and is denying any sort of numbness or tingling. Patient denies any other sick-like symptoms, fever/chills, cough/shortness of breath, nausea/vomiting/diarrhea. Patient believes he is not up-to-date on his tetanus booster. Treatments DIRECTOR OF DEMENTIA OPERATIONS: Reports: Other (see below) Other Treatments DIRECTOR OF DEMENTIA OPERATIONS: pressure Left Hip Pain Score (Numeric/FACES): 4 - Related Data Allergies Allergy/AdvReac Type Severity Reaction Status Date / Time No Known Allergies Allergy Verified 01/11/21 00:24 Home Meds: Home Meds Folic Acid 1 mg PO DAILY #10 tablet 01/15/21 [Rx] Furosemide [Lasix] 20 mg PO DAILY #20 tab 01/15/21 [Rx] Metoprolol Succinate 50 mg PO DAILY #20 tab.er.24h 01/15/21 [Rx] Nicotine [Habitrol] 14 mg TRDERM DAILY #2 box 01/15/21 [Rx] Sacubitril/Valsartan [Entresto 49 mg-51 mg Tablet] 1 each PO BID #40 tablet 01/15/21 [Rx] Thiamine [Vitamin B-1] 100 mg PO DAILY #20 tablet 01/15/21 [Rx] Past Medical History Respiratory History: Reports: PE Psychiatric History: Reports: Anxiety - Infectious Disease History Infectious Disease History: Reports: Novel Coronavirus - Past Surgical History HEENT Surgical History: Reports: Tonsillectomy Other Respiratory Surgeries/Procedures: Covid (+) December 04, 2020 with PE Social & Family History - Family History Family Medical History: No Pertinent Family History - Tobacco Use Tobacco Use Status *Q: Current Every Day Tobacco User Years of Tobacco use: 40 Packs/Tins Daily: 0.5 - Caffeine Use Caffeine Use: Reports: Coffee, Soda - Recreational Drug Use Recreational Drug Use: No ED ROS GENERAL - Review of Systems Review Of Systems: Comprehensive ROS is negative, except as noted in HPI. ED EXAM, SKIN/RASH Exam: See Below Exam Limited By: No Limitations General Appearance: Alert, WD/WN, No Apparent Distress Respiratory/Chest: No Respiratory Distress, Lungs Clear, Normal Breath Sounds, No Accessory Muscle Use, Chest Non-Tender Cardiovascular: Normal Peripheral Pulses, Regular Rate, Rhythm, No Edema Peripheral Pulses: 2+: Radial (L), Radial (R) Extremities: Normal Range of Motion, Normal Capillary Refill Neurological: Alert, Oriented, Normal Cognition, No Motor/Sensory Deficits Psychiatric: Normal Affect, Normal Mood Skin: Warm, Dry, Normal Color, No Rash, Wound/Incision (4 cm linear laceration to the dorsal aspect of the patient's left hand, between the index finger and thumb.) ED SKIN PROCEDURES - Laceration/Wound Repair Left Posterior Hand Appearance: Subcutaneous, Linear, Clean Distal NVT: Neuro & Vascular Intact, No Tendon Injury Anesthetic Type: Local Local Anesthesia - Lidocaine (Xylocaine): 1% Plain Local Anesthetic Volume: 5cc Skin Prep: Chlorhexidine (Hibiciens), Saline Exploration/Debridement/Repair: Wound Explored, In a Bloodless Field, Explored to Base, No Foreign Material Found Closed with: Sutures Lac/Wound length In cm: 4 Suture Size: 4-0 # of Sutures: 9 Suture Type: Prolene, Interrupted, Simple Suture Size: 3-0 # of Sutures: 2 Sterile Dressing Applied: Nurse Tetanus Status Addressed: Yes (updated at today's visit) Complications: No Course - Vital Signs Last Recorded V/S: Last Vital Signs Temp 96.7 F L 02/12/21 12:21 Pulse 105 H 02/12/21 12:21 Resp 20 02/12/21 12:21 BP 130/88 02/12/21 12:21 Pulse Ox 97 02/12/21 12:21 - Orders/Labs/Meds Orders: Active Orders 24 hr Category Date Time Status Vaccine to be Administered/Admin Charge [RC] ASDIRECTED Care 02/12/21 13:46 Ordered Meds: Medications Discontinued Medications Generic Name Dose Route Start Last Admin Trade Name Freq PRN Reason Stop Dose Admin Diphtheria/Tetanus/Acell Pertussis 0.5 ml 02/12/21 13:46 02/12/21 13:58 Diphtheria,Pertussis(Acell),Tetanus Vaccine 0.5 Ml Syringe IM 02/12/21 13:47 0.5 ml .ONCE ONE Administration Lidocaine HCl 10 ml 02/12/21 13:45 02/12/21 13:57 Lidocaine 1% 10 Ml Mdv INJECT 02/12/21 13:46 10 ml ONETIME ONE Administration Departure - Departure Time of Disposition: 13:49 Disposition: Home, Self-Care 01 Condition: Good Clinical Impression: Laceration of left hand Qualifiers: Encounter type: initial encounter Foreign body presence: without foreign body Qualified Code(s): S61.412A - Laceration without foreign body of left hand, initial encounter - Discharge Information *PRESCRIPTION DRUG MONITORING PROGRAM REVIEWED*: No *COPY OF PRESCRIPTION DRUG MONITORING REPORT IN PATIENT WILLIAM: No Instructions: Sutures, Joaquín, or Adhesive Wound Closure, [id number] Referrals: PCP,None [Primary Care Provider] - Forms: ED Department Discharge Additional Instructions: You have been evaluated in the ED for your laceration. Sutures will need to stay in for 10 to 14 days. You may return to the ED or any clinic for removal. You did have also 2 deep sutures placed in the subcutaneous tissue, but these will absorb by themselves. Please keep this area clean and dry, you may cleanse with regular soap and water. No vigorous scrubbing. Please try to avoid submerging the affected area in water for prolonged periods of time until the sutures are removed. Watch out for signs of infection like increased redness, swelling, pain at the laceration site, or if you should develop any fevers or chills. Please return to ED if your symptoms change or worsen. Sepsis Event Note (ED) - Focused Exam Vital Signs: Vital Signs Temp Pulse Resp BP Pulse Ox 02/12/21 12:21 96.7 F L 105 H 20 130/88 97 - My Orders Last 24 Hours: My Active Orders 02/12/21 13:46 Vaccine to be Administered/Admin Charge [RC] ASDIRECTED - Assessment/Plan Last 24 Hours: My Active Orders 02/12/21 13:46 Vaccine to be Administered/Admin Charge [RC] ASDIRECTED
== END 2021-02-12 14:55 | disposition home or self-care (01) ==
LOC: JD.ED 11:53
DX: S61.412A Laceration without foreign body of left hand, initial encounter (principal); Z23 Encounter for immunization; W26.0XXA Contact with knife, initial encounter
CPT/HCPCS: 12042; 90471; 90715; 99282-25